=== PATIENT | female | born 1940 | race Caucasian/White ===

== ENCOUNTER → 2024-09-30 | Outpatient (CLI) | payer MEDICARE ==
[2024-09-30 15:16] LABS: Partial Thromboplastin Time 25.2 sec (22.0-30.0); Prothrombin Time 11.2 sec (10.0-12.5)
[2024-09-30 18:11] LABS: HCT 39.7 % (37.2-46.3); HGB 12.9 g/dL (12.0-15.0); MCH 40.6 pg (27.0-32.0); MCHC 32.5 g/dL (32.0-37.0); MCV 124.8 FL (80.0-97.0); Mean Platelet Volume 12.5 FL (9.5-12.2); NRBC Per 100 WBC 0 X 10*3/uL (0.00-0.01); Platelet Count 375 X 10*3/uL (140-440); RBC 3.18 X 10*6/uL (4.10-5.20); RDW 12.6 % (11.5-14.5)
[2024-09-30 18:27] LABS: ALT 9 U/L (8-44); AST 25 U/L (13-35); Albumin 4.4 g/dL (3.8-4.9); Albumin/Globulin Ratio 1.91 Ratio (1.60-3.17); Alkaline Phosphatase 64 U/L (41-126); BUN/Creat Ratio 14.86 Ratio (12.00-20.00); Blood Urea Nitrogen 10.4 mg/dL (9.0-27.0); Calcium 9.2 mg/dL (8.7-10.3); Carbon Dioxide 25.8 mmol/L (21.6-31.8); Chloride 104 mmol/L (96-109); Globulin 2.3 g/dL (1.6-3.3); Glucose 107 mg/dL (70-110); Potassium 4.2 mmol/L (3.5-5.5); Sodium 142 mmol/L (135-145); Total Bilirubin 0.8 mg/dL (0.3-1.2); Total Protein 6.7 g/dL (6.2-8.2)
[2024-09-30 19:47] LABS: Basophils # (A) 0.05 X 10*3/uL (0.00-0.10); Basophils % (A) 0.7 %; Eosinophils # (A) 0.08 X 10*3/uL (0.04-0.35); Eosinophils % (A) 1.1 %; Lymphocytes # (A) 0.86 X 10*3/uL (0.90-5.00); Lymphocytes % (A) 12.1 %; Macrocytosis (M) 3+ (None Seen); Monocytes # (A) 0.65 X 10*3/uL (0.20-1.00); Monocytes % (A) 9.2 %; Neutrophils # (A) 5.42 X 10*3/uL (1.80-7.70); Neutrophils % (A) 76.3 %
== END | disposition home or self-care (01) ==
LOC: LABPAT 14:40
PROVIDERS: ATTEND Orthopaedic Surgery Sports Medicine
DX: Z01.812 Encounter for preprocedural laboratory examination (principal); Z22.322 Carrier or suspected carrier of Methicillin resistant Staphylococcus aureus; M19.011 Primary osteoarthritis, right shoulder
CPT/HCPCS: 80053; 85025; 85610; 85730; 87070

== ENCOUNTER 2024-10-23 06:02 | Inpatient (IN) | payer MEDICARE ==
[~2024-10-23 06:02] MED LIST: GABAPENTIN 300 MG CAP PO PRN; MELOXICAM 7.5 MG TAB PO PRN; TRANEXAMIC 1,000 MG/100ML-NACL 1,000 MG in SALINE 1 100ML.BAG IVPB PRN
[2024-10-23] MEDS: ACETAMINOPHEN TAB 500 MG TAB PO PRN (06:58)
[2024-10-23] MEDS ORDERED: HYDROmorphone 0.5 MG/0.5 ML SYRINGE IVP PRN ×2 (07:00→09:30)
[2024-10-23] MEDS: IV FLUID CONTINUATION 1,000 ML IV ONE (07:01)
[2024-10-23] MEDS: LACTATED RINGERS 1,000 ML IV SCH ×2 (07:01→09:52)
[2024-10-23] MEDS: DEXAMETHASONE SOD PHOSPHATE 4 MG/ML 1 ML VIAL IV ONE (07:03)
[2024-10-23] MEDS: ONDANSETRON 4 MG/2 ML VIAL IVP PRN (07:03)
[2024-10-23] MEDS: MIDAZOLAM 2 MG/2 ML VIAL IV ONE (07:04)
[2024-10-23] MEDS: ceFAZolin 2 GM in DEXTROSE 5% IN WATER 50 ML IVPB PRN (07:40)
[2024-10-23] MEDS: ceFAZolin 1,000 MG in SODIUM CHLORIDE 0.9% 1,000 ML IRRIGATION ONE (08:09)
[2024-10-23] MEDS: VANCOMYCIN 1,000 MG VIAL MISCELLANE ONE (08:14)
--- NOTE | 2024-10-23 08:59 | P.ANPRN ---
Procedure Note - Anesthesia - Nerve Block Performed Right Interscalene Single Time Out Performed: Yes ([id number]) Date of Procedure: 10/23/24 Procedure Start Time: :06 Procedure Stop Time: 07:11 Location of Patient: PreOp Indication: Acute Post-Operative Pain, Requested by Surgeon Specifically requested for management of pain by DrRamiro: Alan Seals Sedation Type: Sedate with meaningful contact maintained Preparation: Sterile Prep Position: Supine Catheter: None Needle Types: Pajunk Needle Gauge: 21 Ultrasound used to visualize needle placement: Yes Ultrasound used to observe medication spread: Yes Injectate: 0.5% Ropivacaine (see comment for volume) ([id number]) Blood Aspirated: No Pain Paresthesia on Injection Noted: No Resistance on Injection: Normal Image Stored and Saved: Yes Events: Uneventful and Well Tolerated
[2024-10-23] MEDS: ONDANSETRON 4 MG/2 ML VIAL IVP ONE (09:52)
--- NOTE | 2024-10-23 10:23 | XR ---
EXAMINATION TYPE: XR shoulder limited RT DATE OF EXAM: 10/23/2024 10:17 AM COMPARISON: None. CLINICAL INDICATION: Female, 84 years old with history of post op, pain TECHNIQUE: XR shoulder limited RT views were obtained FINDINGS: Glenohumeral prosthesis in place. Postoperative surgical alignment is appropriate. Postoperative surg ical soft tissue changes noted. IMPRESSION: Appropriate postoperative appearance. [facility], , 10/23/2024 10:21 AM
[2024-10-23] MEDS: ceFAZolin 2 GM in DEXTROSE 5% IN WATER 50 ML IVPB SCH (15:42)
[2024-10-23] MEDS ORDERED: DICYCLOMINE 10 MG CAP PO PRN (16:02)
[2024-10-23] MEDS ORDERED: DIPHENOX-ATROP 2.5-0.025 MG 1 EACH TAB PO PRN (16:02)
--- NOTE | 2024-10-23 16:08 | P.HPIM ---
History of Present Illness Patient is admitted for left shoulder surgery postoperatively patient is in some pain but denied any other significant complaints of cough shortness of breath fever chills nausea vomiting abdominal pain dysuria. Patient does have history of polycythemia vera I do not have any labs or CBC available at this time patient had history of DVT in the past secondary to polycythemia vera for which patient on Eliquis and her plaster applicator recommended to start this back again tomorrow. Patient underwent surgery today. And her plaster applicator recommended to start her aspirin back in about a week and add hydroxyurea in about a week. REVIEW OF SYSTEMS: All other systems are negative except those mentioned in the HPI PHYSICAL EXAMINATION: GENERAL: The patient is alert and oriented x3, not in any acute distress. Well developed, well nourished. HEENT: Pupils are round and equally reacting to light. EOMI. No scleral icterus. No conjunctival pallor. Normocephalic, atraumatic. No pharyngeal erythema. No thyromegaly. CARDIOVASCULAR: S1 and S2 present. No murmurs, rubs, or gallops. PULMONARY: Chest is clear to auscultation, no wheezing or crackles. ABDOMEN: Soft, nontender, nondistended, normoactive bowel sounds. No palpable organomegaly. MUSCULOSKELETAL: No joint swelling or deformity. EXTREMITIES: No cyanosis, clubbing, or pedal edema. NEUROLOGICAL: Gross neurological examination did not reveal any focal deficits. SKIN: No rashes. Assessment and plan -Left shoulder surgery pain management as per primary service. Patient will be started on Eliquis starting tomorrow morning. - Polycythemia rubra vera history hold of hydroxyurea for now. - History of DVT in the past resume Eliquis starting tomorrow morning-history of paroxysmal atrial fibrillation presently sinus rhythm --Hyperlipidemia Depression For above-mentioned chronic medical problems patient will be resumed on appropriate home medications. 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 Past Psychological History: Depression Smoking Status: Never smoker Past Alcohol Use History: Occasional Additional Past Alcohol Use History / Comment(s): advised no alcohol 24 hrs prior to surg. Past Drug Use History: None Reported - Past Family History Father Family Medical History: Diabetes Mellitus, Myocardial Infarction ([place]) Mother Family Medical History: Cancer Additional Family Medical History / Comment(s): lung Daughter(s) Family Medical History: Pulmonary Embolus Medications and Allergies Home Medications Medication Instructions Recorded Confirmed Type Acetaminophen Tab [Tylenol] 650 mg PO Q6H 10/20/24 10/23/24 History Apixaban [Eliquis] 5 mg PO BID 10/20/24 10/23/24 History Aspirin [[place] Aspirin EC] 81 mg PO DAILY 10/20/24 10/23/24 History Atorvastatin [Lipitor] 40 mg PO HS 10/20/24 10/23/24 History Cholecalciferol [Vitamin D3 (10 10 mcg PO DAILY 10/20/24 10/23/24 History Mcg = 400 Iu)] DULoxetine HCL [Cymbalta] 20 mg PO DAILY 10/20/24 10/23/24 History Dicyclomine [Bentyl] 10 mg PO QID PRN 10/20/24 10/23/24 History Diphenox-Atrop 2.5-0.025 mg 1 - 2 tab PO QID PRN 10/20/24 10/23/24 History [Lomotil] Ergocalciferol [Vitamin D2 (1250 1,250 mcg PO WEEKLY 10/20/24 10/23/24 History Mcg = 46118 Iu)] Ferrous Gluconate 324 mg PO DAILY 10/20/24 10/23/24 History Folic Acid 1 mg PO DAILY 10/20/24 10/23/24 History Gabapentin [Neurontin] 100 mg PO QAM 10/20/24 10/23/24 History Gabapentin [Neurontin] 300 mg PO HS 10/20/24 10/23/24 History Hydroxyurea 500 mg PO BID 10/20/24 10/23/24 History Memantine [Namenda] 10 mg PO BID 10/20/24 10/23/24 History Multivit-Min/Iron/Folic/Lutein 1 each PO DAILY 10/20/24 10/23/24 History [Centrum Silver Women Tablet] Pantoprazole [Protonix] 40 mg PO DAILY 10/20/24 10/23/24 History Docusate [Colace] 100 mg PO BID #60 capsule 10/23/24 Rx Doxycycline Hyclate 100 mg PO BID #10 tab 10/23/24 Rx Ondansetron [Zofran] 4 mg PO Q8HR PRN #21 tab 10/23/24 Rx Allergies Allergy/AdvReac Type Severity Reaction Status Date / Time levofloxacin [From Levaquin] Allergy Rash/Hives Verified 10/23/24 06:19 Physical Exam Vitals: Vital Signs Temp Pulse Pulse Resp BP Pulse Ox 10/23/24 14:21 97.9 F 77 17 100/58 92 L 10/23/24 12:15 71 123/78 93 L 10/23/24 12:00 63 124/66 93 L 10/23/24 11:45 65 134/73 91 L 10/23/24 11:30 79 127/78 90 L 10/23/24 11:15 64 127/79 93 L 10/23/24 11:00 59 L 110/68 96 10/23/24 10:45 62 122/75 92 L 10/23/24 10:30 97.6 F 69 18 111/65 94 L 10/23/24 10:08 61 16 123/70 96 10/23/24 09:53 67 16 133/68 97 10/23/24 09:38 76 16 142/64 100 10/23/24 09:23 96.7 F L 80 14 141/71 100 10/23/24 07:16 68 14 151/72 96 10/23/24 06:26 97.1 F L 71 16 138/72 92 L Intake and Output 10/23/24 10/23/24 10/23/24 06:59 14:59 22:59 Intake Total 1485 Output Total 100 Balance 1385 Intake: IV 501 Oral 984 Output: Estimated Blood Loss 100 Other: # Voids 1 1 Weight 86.1 kg 86.1 kg Thrombosis Risk Factor Assmnt - Choose All That Apply Any of the Below Risk Factors Present?: Yes Each Factor Represents 1 point: Hx of IBD, Obesity (BMI >25) Each Risk Factor Represents 2 Points: Major surgery, Malignancy Each Risk Factor Represents 3 Points: Age 75 years or older, Family history of DVT/PE, History of DVT/PE Other congenital or acquired thrombophilia - If yes, enter type in comment: Yes (faith-2+ polycythemia vera) Thrombosis Risk Factor Assessment Total Risk Factor Score: 15 Thrombosis Risk Factor Assessment Level: High Risk
[2024-10-23] MEDS: PANTOPRAZOLE 40 MG TABLET PO SCH (16:20)
[2024-10-23] MEDS: DULoxetine HCL 20 MG CAPSULE.DR PO SCH (17:07)
[2024-10-23] MEDS: HYDROcodone/APAP 7.5-325MG 1 EACH TAB PO PRN (22:16)
[2024-10-23] MEDS: ATORVASTATIN 40 MG TAB PO SCH (22:16)
[2024-10-23] MEDS: MEMANTINE 10 MG TAB PO SCH (22:16)
[2024-10-23] MEDS: GABAPENTIN 300 MG CAP PO SCH (22:16)
[2024-10-23] MEDS: HYDROmorphone 0.5 MG/0.5 ML SYRINGE IVP PRN (23:52)
[2024-10-24] MEDS: HYDROcodone/APAP 7.5-325MG 1 EACH TAB PO PRN (01:58)
[2024-10-24] MEDS: HYDROmorphone 0.5 MG/0.5 ML SYRINGE IVP PRN (02:58)
[2024-10-24 05:07] LABS: HCT 37.3 % (37.2-46.3); HGB 11.9 g/dL (12.0-15.0); MCH 40.6 pg (27.0-32.0); MCHC 31.9 g/dL (32.0-37.0); MCV 127.3 fL (80.0-97.0); Mean Platelet Volume 12.5 fL (9.5-12.2); Platelet Count 299 10*3/uL (140-440); RBC 2.93 10*6/uL (4.10-5.20); RDW 11.4 % (11.5-14.5); WBC 24.72 10*3/uL (4.50-10.00)
[2024-10-24 06:43] LABS: Lymphocytes # (M) 0.74 k/uL (1.0-4.8); Metamyelocytes # (M) 0.74 k/uL (0); Metamyelocytes % 3 %; Monocytes # (M) 0.49 k/uL (0-1.0); Myelocytes # (M) 0.25 k/uL (0); Myelocytes % 1 %; Neutrophils % (M) 91 %; Nucleated Red Blood Cells 0 /100 WBC (0-0); Total Cells Counted 96
[2024-10-24] MEDS: APIXABAN 5 MG TAB PO SCH (07:55)
[2024-10-24] MEDS: GABAPENTIN 100 MG CAP PO SCH (07:56)
[2024-10-24] MEDS ORDERED: oxyCODONE-APAP 7.5-325MG 1 EACH TAB PO PRN (09:22)
--- NOTE | 2024-10-24 10:51 | OP ---
OPERATIVE REPORT DATE OF SERVICE : 10/23/2024 PREOPERATIVE DIAGNOSIS: Right shoulder advanced rotator cuff arthropathy. POSTOPERATIVE DIAGNOSIS: Right shoulder advanced rotator cuff arthropathy. OPERATION: Right reverse total shoulder arthroplasty. ANESTHESIA: General endotracheal. ESTIMATED BLOOD LOSS: 100 mL. DRAINS: None. COMPLICATIONS: None apparent. DISPOSITION: Postanesthesia care unit. INDICATIONS: Jessie is a very pleasant 84-year-old female with longstanding right shoulder pain. Workup including x-rays revealed advanced rotator cuff arthropathy of the right shoulder. At this point, it was felt that she has failed conservative management. She would like to proceed with operative intervention. The risks of procedure were discussed with her in detail. These risks include, but are not limited to risk of infection, nerve damage, bleeding, pain, instability in the shoulder, loosening of the implants, and deep infection. There is also risk of deep vein thrombosis, which could lead to fatal pulmonary embolism. The patient understood these risks. All of her questions with regard to the risks of procedure were answered to her satisfaction. Appropriate informed consent was obtained. DESCRIPTION OF PROCEDURE: The patient was identified in the preoperative holding area. Surgical site was marked by both the patient and myself. She was given 2 g of Ancef IV for prophylactic purposes. She was then transferred to the operative suite. She was placed supine on the operating table. A general anesthetic was then administered and dosed per the Anesthesia Department without apparent complication. Examination under anesthesia was then performed of the right shoulder. She had elevation to 120 degrees. External rotation to side was to 30 degrees. The patient was then placed into the beach chair position and well-padded in preparation for surgery. Great care was taken to ensure that her neck was in neutral alignment well-padded and maintained that way throughout the operative procedure. Great care was also taken to ensure that her legs were appropriately padded as well. The patient's right upper extremity was then prepped and draped in usual sterile fashion. Standard surgical pause undertaken to ensure that we were operating the correct site and that appropriate preoperative antibiotics were given. All staff in room were in agreement, and we proceeded. The acromion AC joint clavicle and coracoid were marked with a surgical pen. A planned incision starting at the level of the clavicle and extending distally over the deltopectoral interval approximately 1 cm lateral to the coracoid was marked with a surgical pen. The incision was then made with a 10-blade scalpel. Dissection was carried down sharply to the deltoid fascia. The deltopectoral interval was identified at the level of clavicle. A small band retractor was then placed onto the proximal deltoid. I then released the deltoid fascia on the lateral aspect of the cephalic vein. The vein was protected and left in its bed medially. I then identified the clavipectoral fascia. This was incised proximally to the level of the coracoacromial ligament. The coracoacromial ligament was left intact. We then used my finger to spread the interval between the conjoint tendon and the subscapularis. I felt for the axillary nerve, which was readily palpable. I then cleared the subacromial and subdeltoid spaces of bursal and scar tissue. She had significant bursal and scar tissue in the subdeltoid space. The greater tuberosity was nearly completely devoid of any rotator cuff attachment. I then utilized a Brown retractor to hold the deltoid and expose the humeral head. I then proceeded with release of the subscapularis in the anterior-inferior shoulder capsule. The rotator cuff was inspected and was found to be nearly completely absent at the greater tuberosity. The biceps tendon was also identified. I then released the rotator interval to the base of the coracoid and then out laterally. The subscapularis and capsule were then released intertendinously. The subscapularis and capsular release extended distally in a lazy-S fashion, approximately 1 cm medial to the biceps tendon. I also at this point in time tenodesed the biceps to the soft tissue surrounding the bicipital groove and released the biceps tendon. I then continued to release the capsule along the inferior neck in a vertical fashion to approximately the 6 o'clock position. Great care was taken to ensure the capsule was always visualized as it was released as to avoid injuring the axillary nerve. I then brought a Fritz strain technician with the arm externally rotated and abducted. I continued to release the capsule inferomedially to the 4 o'clock position. The inferior osteophytes were now removed as well. This was done with a rongeur. I then proceeded with preparation of the humerus. I removed all the goat's giraldo osteophytes. I then removed the subchondral plate from the superior aspect of the humeral head utilizing a rongeur. I then used a starting reamer to gain access to the humeral canal. This was approximately 1 cm medial to the rotator cuff insertion and 1 cm posterior to the bicipital groove. I then prepared the humeral canal with hand reaming. I started with a 6 mm reamer and incrementally increased until firm resistance was encountered. This was at 13 mm. The reamer handle was then left in place. I then utilized a humeral resection guide set at 30 degrees of retrotorsion. The cutting block was then set at the previous insertion of the rotator cuff. I then proceeded to osteotomize the humeral head with an oscillating saw. I removed the resection guide and then completed the osteotomy. I then proceeded with trial stem placement. I broached up to a size 13 incrementally. The 13 mm trial stem was then left in place. I brought in the Fritz stand. The bone hook was then used to pull the humerus out laterally. I inspected the joint for any loose bodies. The Bhattman retractor was then placed on the posterior glenoid rim. The arm was placed approximately 80 degrees of abduction and in slight flexion on the Fritz stand. I then proceeded to remove the hypertrophic labrum to definitively identify the actual glenoid. I then used the mini base plate guide. This was placed slightly inferior of center. The starting pin was then placed. This was placed in approximately 10 degrees of inferior tilt. I then used a mini base plate reamer. As minimal reaming was done as possible as to preserve as much subchondral bone as possible. I then used the trial small augment. This was placed posterior superiorly. This fit very nicely. I had the account manager sales representative open a [employer] mini base plate with a small augment. The small augment was then oriented posterior superiorly and then the real base plate was impacted into the glenoid. I then proceeded with placement of the central screw. I measured for the central screw. A 25 mm central screw was placed. The bite was not as firm as usual, but it still had a fairly good bite and it was checked to be fully seated. I then placed peripheral locking screws. The inferior screw was a 20 mm screw, the anterior, superior, and posterior screws were all 15 mm locking screws. I had the account manager sales representative open the 36 mm glenosphere. It was offset slightly inferiorly. The Berrios taper was dried and the real glenosphere was then impacted into the real base plate. We did check the clonus preceding to ensure that it was fully seated and it was. I then proceeded with trial. The shoulder was then carefully re-dislocated. We placed a standard tray, standard poly trial. This was a mildly difficult reduction. It was very stable throughout a full range of motion. There was no impingement noted. There was not any undue tension on the conjoint tendon. The shoulder was then carefully re- dislocated. The trial humeral components were removed. The wound was thoroughly irrigated with sterile saline solution with antibiotic added via pulse lavage. We also utilized the IrriSept antiseptic solution at this time. I then account manager sales representative open a 13 mm [employer]omet mini stem, a standard tray and a standard poly for 36 mm glenosphere. The stem was then impacted into the proximal humerus in approximately 30 degrees of retrotorsion. It was very secure fit. The Berrios taper was dried and then the standard tray and standard poly was then impacted appropriately onto the stem. It was a very firm connection. The shoulder was again reduced. Again, it was a mildly difficult reduction. It was taken through a full range of motion and very stable. Again, there was no undue tension on the conjoint tendon. At this point, I did feel for the axillary nerve, which was readily palpable and seemingly uninjured. We did use remaining IrriSept solution at this point in time. Once we were through with that, we placed approximately 500 mg of vancomycin powder deep. The deltopectoral interval was then reapproximated with 0 Vicryl interrupted suture. Subcutaneous tissue was thoroughly irrigated and what was left of the IrriSept solution was utilized. The remaining 500 mg of vancomycin powder was then placed subcutaneously. Subcutaneous tissue was closed with 2-0 Vicryl interrupted suture, and the skin was closed with a running 3-0 Quill suture. Dermabond was applied to the incision. Sterile dressings were applied, and the patient's right upper extremity was placed into a standard sling. All sponge and needle counts were deemed correct prior to closure. The patient tolerated the procedure without apparent complication. She was transferred to the recovery room in stable condition. MMODL / IJN: [id number] /
--- NOTE | 2024-10-24 11:48 | P.PN ---
Subjective Progress Note Date: 10/24/24 Principal diagnosis: S/P right reverse TSA Patient is seen at bedside this morning. She is postop day #1 from reverse right total shoulder arthroplasty. She has pain at the surgical site as expected but denies any new complaints. She denies numbness, tingling or calf pain. Review of systems is negative for fever, chills, chest pain, shortness of breath or other Objective - Vital Signs Vital signs: Vital Signs Temp 97.8 F 10/24/24 07:20 Pulse 68 10/24/24 07:20 Resp 20 10/24/24 07:20 BP 110/67 10/24/24 07:20 Pulse Ox 92 L 10/24/24 07:20 FiO2 Intake & Output 10/23/24 10/24/24 10/24/24 18:59 06:59 18:59 Intake Total 2385 100 Output Total 100 Balance 2285 100 Weight 86.1 kg Intake: IV 501 Intake, IV Titration 100 Amount Lactated Ringers 1,000 ml 50 @ 100 mls/hr IV .Q10H KYREE Rx#:[id number] ceFAZolin 2 gm In 50 Dextrose 5% in Water 50 ml @ 100 mls/hr IVPB Q8HR KYREE Rx#:[id number] Oral 1884 Output: Estimated Blood Loss 100 Other: Voiding Method Toilet # Voids 3 2 1 - Exam Inspection reveals a benign surgical wound. There is no active bleeding or drainage. Neurovascular status is intact throughout the upper extremity with motor and sensation fully intact. Calves are soft and nontender. 2+ radial pulse and less than 2 second cap refill is present. - Constitutional General appearance: Present: no acute distress - Labs CBC & Chem 7: 10/24/24 04:11 Labs: Abnormal Lab Results - Last 24 Hours (Table) 10/24/24 Range/Units 04:11 WBC 24.72 H (4.50-10.00) 10*3/uL RBC 2.93 L (4.10-5.20) 10*6/uL Hgb 11.9 L (12.0-15.0) g/dL MCV 127.3 H (80.0-97.0) fL MCH 40.6 H (27.0-32.0) pg MCHC 31.9 L (32.0-37.0) g/dL RDW 11.4 L (11.5-14.5) % MPV 12.5 H (9.5-12.2) fL Immature Gran # 0.63 H (0.00-0.04) 10*3/uL Neutrophils # (Manual) 22.50 H (1.3-7.7) k/uL Lymphocytes # (Manual) 0.74 L (1.0-4.8) k/uL Metamyelocytes # (Man) 0.74 H (0) k/uL Myelocytes # (Manual) 0.25 H (0) k/uL Assessment and Plan (1) Status post total replacement of right shoulder Narrative/Plan: She will continue with routine postop orthopedic protocol including pain management, wound care, DVT prophylaxis and medical management. Expect that she will transfer to home tomorrow Current Visit: Yes Status: Acute Priority: Medium Code(s): Z96.611 - PRESENCE OF RIGHT ARTIFICIAL SHOULDER JOINT SNOMED Code(s): 053857002 Time with Patient: Less than 30
[2024-10-24] MEDS: oxyCODONE-APAP 7.5-325MG 1 EACH TAB PO PRN (13:07)
[2024-10-24] MEDS: diphenhydrAMINE 25 MG CAP PO PRN (21:58)
--- NOTE | 2024-10-25 06:24 | P.PN ---
Subjective Progress Note Date: 10/24/24 Patient is admitted for right shoulder surgery postoperatively patient is in some pain but denied any other significant complaints of cough shortness of breath fever chills nausea vomiting abdominal pain dysuria. Patient does have history of polycythemia vera I do not have any labs or CBC available at this time patient had history of DVT in the past secondary to polycythemia vera for which patient on Eliquis and her geneticist recommended to start this back again tomorrow. Patient underwent surgery today. And her geneticist recommended to start her aspirin back in about a week and add hydroxyurea in about a week. 10/24/2024 Patient is seen in follow-up status post right total arthroplasty with orthopedics. Patient with significant weakness is planning on going to rehab for continued strength and mobility. Patient is afebrile sitting up in the chair with no reports of chest pain or shortness of breath. Patient does have sling although currently not using it as she is sitting up in the chair eating. Instructed patient to continue using sling is much as possible. Patient uses a walker normally and will be having difficulty managing ADLs and would recommend ECF for continued PT/OT therapy. Patient does live alone. Patient reports she is tolerating diet with no reported nausea or vomiting. Encouraged incentive spirometer use and increase activity as tolerated Review of systems: Constitutional: No reports of fatigue, fever, or chills Cardiovascular: No reports of chest pain or palpitations Respiratory: No reports of shortness of breath or cough GI: No reports of nausea, vomiting, or diarrhea, reports passing gas and had a bowel movement : No reports of dysuria or retention Neurovascular: reports of generalized weakness All medications have been reviewed PHYSICAL EXAMINATION: GENERAL: The patient is alert and oriented x3, not in any acute distress. Well developed, elderly appearing HEENT: Pupils are round and equally reacting to light. EOMI. No scleral icterus. No conjunctival pallor. Normocephalic, atraumatic. No pharyngeal erythema. No thyromegaly. CARDIOVASCULAR: S1 and S2 present. No murmurs, rubs, or gallops. PULMONARY: Chest is clear to auscultation, no wheezing or crackles. ABDOMEN: Soft, nontender, nondistended, normoactive bowel sounds. No palpable organomegaly. MUSCULOSKELETAL: No joint swelling or deformity. EXTREMITIES: No cyanosis, clubbing, or pedal edema. Right shoulder sling noted although patient is not using currently as she is eating NEUROLOGICAL: Gross neurological examination did not reveal any focal deficits. Diffusely weak SKIN: No rashes. Assessment: -Status post right shoulder total arthroplasty - Polycythemia rubra vera history hold off hydroxyurea for now. Okay to resume in approximately 1 week - History of DVT in the past, resume Eliquis starting tomorrow morning -history of paroxysmal atrial fibrillation presently sinus rhythm -Hyperlipidemia -History of Depression DVT prophylaxis: As per primary service, Eliquis being resumed GI prophylaxis Full code Plan: Patient is admitted under orthopedic services status post right total shoulder arthroplasty and has sling. Patient uses a walker and will be hard to perform ADLs and is planning on going to ECF Case management following working on discharge planning Encourage incentive spirometer use at least 10 times every hour while awake Home medications reviewed and resumed as appropriate Patient's Hydrea is being held and okay to resume in about 1 week Resuming Eliquis Thank you kindly for this consultation. We will continue to follow with orthopedics during hospitalization The impression and plan of care has been dictated by Temitope Horner, Nurse Practitioner as directed. Dr. Karely MD I have performed a history and examination and MDM of this patient, discussed the same with the dictator, and agree with the dictator's assessment and plan as written ,documented as a scribe. Based on total visit time, I have performed more than 50% of the visit. Objective - Vital Signs Vital signs: Vital Signs Temp 97.8 F 10/24/24 07:20 Pulse 68 10/24/24 07:20 Resp 20 10/24/24 07:20 BP 110/67 10/24/24 07:20 Pulse Ox 92 L 10/24/24 07:20 FiO2 Intake & Output 10/23/24 10/24/24 10/24/24 18:59 06:59 18:59 Intake Total 2385 100 Output Total 100 Balance 2285 100 Weight 86.1 kg Intake: IV 501 Intake, IV Titration 100 Amount Lactated Ringers 1,000 ml 50 @ 100 mls/hr IV .Q10H KYREE Rx#:[id number] ceFAZolin 2 gm In 50 Dextrose 5% in Water 50 ml @ 100 mls/hr IVPB Q8HR KYREE Rx#:[id number] Oral 1884 Output: Estimated Blood Loss 100 Other: Voiding Method Toilet # Voids 3 2 1 - Labs CBC & Chem 7: 10/24/24 04:11 Labs: Abnormal Lab Results - Last 24 Hours (Table) 10/24/24 Range/Units 04:11 WBC 24.72 H (4.50-10.00) 10*3/uL RBC 2.93 L (4.10-5.20) 10*6/uL Hgb 11.9 L (12.0-15.0) g/dL MCV 127.3 H (80.0-97.0) fL MCH 40.6 H (27.0-32.0) pg MCHC 31.9 L (32.0-37.0) g/dL RDW 11.4 L (11.5-14.5) % MPV 12.5 H (9.5-12.2) fL Immature Gran # 0.63 H (0.00-0.04) 10*3/uL Neutrophils # (Manual) 22.50 H (1.3-7.7) k/uL Lymphocytes # (Manual) 0.74 L (1.0-4.8) k/uL Metamyelocytes # (Man) 0.74 H (0) k/uL Myelocytes # (Manual) 0.25 H (0) k/uL
[2024-10-25 10:16] LABS: HCT 39.6 % (37.2-46.3); HGB 12.3 g/dL (12.0-15.0); MCH 38.4 pg (27.0-32.0); MCHC 31.1 g/dL (32.0-37.0); MCV 123.8 FL (80.0-97.0); Mean Platelet Volume 12.8 FL (9.5-12.2); NRBC Per 100 WBC 0 X 10*3/uL (0.00-0.01); Platelet Count 389 X 10*3/uL (140-440); RDW 11.9 % (11.5-14.5); WBC 24.12 X 10*3/uL (4.50-10.00)
[2024-10-25 10:18] LABS: BUN/Creat Ratio 13.86 Ratio (12.00-20.00); Blood Urea Nitrogen 9.7 mg/dL (9.0-27.0); Calcium 8.8 mg/dL (8.7-10.3); Carbon Dioxide 25.6 mmol/L (21.6-31.8); Chloride 98 mmol/L (96-109); Glucose 119 mg/dL (70-110); Potassium 5.3 mmol/L (3.5-5.5); Sodium 136 mmol/L (135-145)
--- NOTE | 2024-10-25 10:38 | P.DS ---
Providers Date of admission: 10/23/2024 Expected date of discharge: 10/25/24 Attending physician: Alan Seals Consults: 10/23/24 09:30 Consult Physician Routine Consulting Provider: Sybil Mcgrath Reason/Comments: post op medical management Do you want consulting provider notified?: Yes Primary care physician: Stated None - Discharge Diagnosis(es) (1) Rotator cuff arthropathy of right shoulder Current Visit: Yes Status: Acute (2) Right shoulder pain Current Visit: Yes Status: Acute (3) Atrial fibrillation Current Visit: Yes Status: Acute (4) History of DVT (deep vein thrombosis) Current Visit: Yes Status: Acute (5) Hyperlipidemia Current Visit: Yes Status: Acute (6) Polycythemia Current Visit: Yes Status: Acute (7) Status post total replacement of right shoulder Current Visit: Yes Status: Acute Priority: Medium Hospital Course: This is a pleasant 84-year-old female who presented with right shoulder advanced rotator cuff arthropathy who failed outpatient conservative therapy. He was admitted for a right reverse total shoulder arthroplasty. She had some difficulty with pain control initially. Her pain has been better controlled since being converted to Percocet. She is not currently complaining of any significant pain at her right shoulder. Dressing is clean, dry, and intact. She is utilizing a sling. The patient tolerated the procedure well and did well postoperatively. Condition on day of discharge stable from an orthopedic standpoint. Patient will be discharged home. Patient states she is itching today over her entire body. I do not see any rash or hives. She states her itching is generalized. She has been taking narcotic medications in the codeine family since her admission to the hospital without any difficulty. She states itching started this morning. We did discuss she must be seen in exam by medicine and cleared prior to her discharge home. Patient is planned to be discharged home with her daughter who is a nurse here at [facility]. Patient currently denies any nausea, vomiting, fever, or chills. Patient is eating and voiding freely without difficulty. Patient should keep dressing over the right shoulder clean, dry, and intact. Dressing may be removed in 3 days and patient may shower without a dressing at that time if there is no active bleeding from the surgical site. She should continue to maintain her sling for the right upper extremity. She is nonweightbearing with the right upper extremity. Medications of oxycodone 5 mg / 325 mg, Colace, doxycycline, and Zofran were sent to the patient's pharmacy. Patient's other medical diagnoses include hyperlipidemia, polycythemia, history of DVT, and history of paroxysmal atrial fibrillation. Physical Exam on day of discharge: Patient is awake, alert, and oriented 3 Vital signs stable Good chest excursion with deep inspiration and expiration Abdomen soft nontender No signs or symptoms of DVT; no calf pain Right upper extremity sling is intact Patient is able to perform active range of motion of her right wrist and fingers of the right hand without significant difficulty No significant pain with palpation around the surgical site of the right shoulder Incision is clean, dry, and intact; no erythema, purulence, or signs of infection Surgical dressing over the right shoulder is intact Procedures: Reverse right total shoulder arthroplasty Patient Condition at Discharge: Stable Plan - Discharge Summary Discharge Rx Participant: Yes New Discharge Prescriptions: New Doxycycline Hyclate 100 mg PO BID #10 tab Ondansetron [Zofran] 4 mg PO Q8HR PRN #21 tab PRN Reason: Nausea Doxycycline Hyclate 100 mg PO BID #10 tab oxyCODONE HCL/ACETAMINOPHEN [Percocet 5-325 mg Tablet] 1 each PO Q6HR PRN #30 tab PRN Reason: Pain Docusate [Colace] 100 mg PO BID #60 capsule Docusate [Colace] 100 mg PO BID #60 capsule Ondansetron [Zofran] 4 mg PO Q8HR PRN #21 tab PRN Reason: Nausea No Action Dicyclomine [Bentyl] 10 mg PO QID PRN PRN Reason: stomach pain Gabapentin [Neurontin] 100 mg PO QAM DULoxetine HCL [Cymbalta] 20 mg PO DAILY Diphenox-Atrop 2.5-0.025 mg [Lomotil] 1 - 2 tab PO QID PRN PRN Reason: Diarrhea Acetaminophen Tab [Tylenol] 650 mg PO Q6H Multivit-Min/Iron/Folic/Lutein [Centrum Silver Women Tablet] 1 each PO DAILY Memantine [Namenda] 10 mg PO BID Hydroxyurea 500 mg PO BID Gabapentin [Neurontin] 300 mg PO HS Apixaban [Eliquis] 5 mg PO BID Pantoprazole [Protonix] 40 mg PO DAILY Folic Acid 1 mg PO DAILY Ferrous Gluconate 324 mg PO DAILY Ergocalciferol [Vitamin D2 (1250 Mcg = 55359 Iu)] 1,250 mcg PO WEEKLY Atorvastatin [Lipitor] 40 mg PO HS Aspirin [[place] Aspirin EC] 81 mg PO DAILY Cholecalciferol [Vitamin D3 (10 Mcg = 400 Iu)] 10 mcg PO DAILY Discharge Medication List Acetaminophen Tab [Tylenol] 650 mg PO Q6H 10/20/24 [History] Apixaban [Eliquis] 5 mg PO BID 10/20/24 [History] Aspirin [[place] Aspirin EC] 81 mg PO DAILY 10/20/24 [History] Atorvastatin [Lipitor] 40 mg PO HS 10/20/24 [History] Cholecalciferol [Vitamin D3 (10 Mcg = 400 Iu)] 10 mcg PO DAILY 10/20/24 [History] DULoxetine HCL [Cymbalta] 20 mg PO DAILY 10/20/24 [History] Dicyclomine [Bentyl] 10 mg PO QID PRN 10/20/24 [History] Diphenox-Atrop 2.5-0.025 mg [Lomotil] 1 - 2 tab PO QID PRN 10/20/24 [History] Ergocalciferol [Vitamin D2 (1250 Mcg = 83427 Iu)] 1,250 mcg PO WEEKLY 10/20/24 [History] Ferrous Gluconate 324 mg PO DAILY 10/20/24 [History] Folic Acid 1 mg PO DAILY 10/20/24 [History] Gabapentin [Neurontin] 100 mg PO QAM 10/20/24 [History] Gabapentin [Neurontin] 300 mg PO HS 10/20/24 [History] Hydroxyurea 500 mg PO BID 10/20/24 [History] Memantine [Namenda] 10 mg PO BID 10/20/24 [History] Multivit-Min/Iron/Folic/Lutein [Centrum Silver Women Tablet] 1 each PO DAILY 10/20/24 [History] Pantoprazole [Protonix] 40 mg PO DAILY 10/20/24 [History] Docusate [Colace] 100 mg PO BID #60 capsule 10/23/24 [Rx] Doxycycline Hyclate 100 mg PO BID #10 tab 10/23/24 [Rx] Ondansetron [Zofran] 4 mg PO Q8HR PRN #21 tab 10/23/24 [Rx] Docusate [Colace] 100 mg PO BID #60 capsule 10/24/24 [Rx] Doxycycline Hyclate 100 mg PO BID #10 tab 10/24/24 [Rx] Ondansetron [Zofran] 4 mg PO Q8HR PRN #21 tab 10/24/24 [Rx] oxyCODONE HCL/ACETAMINOPHEN [Percocet 5-325 mg Tablet] 1 each PO Q6HR PRN #30 tab 10/24/24 [Rx] Follow up Appointment(s)/Referral(s): Alan Seals MD [STAFF PHYSICIAN] - 10 Days Activity/Diet/Wound Care/Special Instructions: Non Weight Bearing Maintain sling May shower after 3 days if no bleeding Keep wound clean and dry Take meds as directed F/U with Dr. Seals in office Discharge Disposition: HOME SELF-CARE
[2024-10-25 11:02] LABS: Basophils % (A) 0.4 %; Eosinophils # (A) 0.09 X 10*3/uL (0.04-0.35); Eosinophils % (A) 0.4 %; Lymphocytes # (A) 1.53 X 10*3/uL (0.90-5.00); Lymphocytes % (A) 6.3 %; Macrocytosis (M) 3+ (None Seen); Monocytes # (A) 3.58 X 10*3/uL (0.20-1.00); Monocytes % (A) 14.8 %; Neutrophils # (A) 18.49 X 10*3/uL (1.80-7.70); Neutrophils % (A) 76.7 %
--- NOTE | 2024-10-25 13:57 | XR ---
EXAMINATION TYPE: XR chest 2V DATE OF EXAM: 10/25/2024 1:42 PM COMPARISON: Right shoulder radiograph 10/23/2024 TECHNIQUE: XR chest 2V Frontal and lateral views of the chest. CLINICAL INDICATION:Female, 84 years old with history of Hypoxia; FINDINGS: Lungs/Pleura: There is no evidence of pleural effusion, focal consolidation, or pneumothorax. Elevat ion of the right hemidiaphragm. Right basilar linear atelectasis. Pulmonary vascularity: Unremarkable. Heart/mediastinum: Cardiomediastinal silhouette is unremarkable. Atherosclerotic calcifications are seen in the aorta. Musculoskeletal: No acute osseous pathology. Bilateral shoulder arthroplasty changes. IMPRESSION: No acute cardiopulmonary disease/process. [facility], , 10/25/2024 1:54 PM
[2024-10-25 16:01] LABS: Appearance,Urine Clear (Clear); Bilirubin,Urine Negative (Negative); Blood,Urine Negative (Negative); Color,Urine Yellow; Glucose,Urine (UA) Negative (Negative); Ketones,Urine Negative (Negative); Leukocyte Esterase,Urine Negative (Negative); Nitrite,Urine Negative (Negative); PH, Urine 5.5 (5.0-8.0); Protein,Urine Trace (Negative); Specific Gravity,Urine 1.019 (1.001-1.035); Urobilinogen,Urine <2.0 mg/dL (<2.0)
--- NOTE | 2024-10-25 16:08 | P.PN ---
Subjective Progress Note Date: 10/25/24 Patient is admitted for right shoulder surgery postoperatively patient is in some pain but denied any other significant complaints of cough shortness of breath fever chills nausea vomiting abdominal pain dysuria. Patient does have history of polycythemia vera I do not have any labs or CBC available at this time patient had history of DVT in the past secondary to polycythemia vera for which patient on Eliquis and her parts salesman recommended to start this back again tomorrow. Patient underwent surgery today. And her parts salesman recommended to start her aspirin back in about a week and add hydroxyurea in about a week. 10/24/2024 Patient is seen in follow-up status post right total arthroplasty with orthopedics. Patient with significant weakness is planning on going to rehab for continued strength and mobility. Patient is afebrile sitting up in the chair with no reports of chest pain or shortness of breath. Patient does have sling although currently not using it as she is sitting up in the chair eating. Instructed patient to continue using sling is much as possible. Patient uses a walker normally and will be having difficulty managing ADLs and would recommend [facility] for continued PT/OT therapy. Patient does live alone. Patient reports she is tolerating diet with no reported nausea or vomiting. Encouraged incentive spirometer use and increase activity as tolerated 10/25/2024 Patient is evaluated today in follow up. Resting in bed comfortably and reports having minimal to no pain currently. Sling in place to the right shoulder. Patient was evaluated by PT and recommending home with homecare services. WBC 24.12 today. Recommending to resume the hydrea in one week. Resumed on eliquis. Patient continues to be hypoxic requiring oxygen via nasal cannula at 2 L. She is found to be 82% while on room air and dropping into the 70s at times. A chest x-ray was completed which was negative for any acute findings. Viral scan pending. D-dimer was elevated at 0.71. Review of systems: Constitutional: No reports of fatigue, fever, or chills Cardiovascular: No reports of chest pain or palpitations Respiratory: No reports of shortness of breath or cough GI: No reports of nausea, vomiting, or diarrhea, reports passing gas and had a bowel movement : No reports of dysuria or retention Neurovascular: reports of generalized weakness All medications have been reviewed PHYSICAL EXAMINATION: GENERAL: The patient is alert and oriented x3, not in any acute distress. Well developed, elderly appearing HEENT: Pupils are round and equally reacting to light. EOMI. No scleral icterus. No conjunctival pallor. Normocephalic, atraumatic. No pharyngeal erythema. No thyromegaly. CARDIOVASCULAR: S1 and S2 present. No murmurs, rubs, or gallops. PULMONARY: Chest is clear to auscultation, no wheezing or crackles. ABDOMEN: Soft, nontender, nondistended, normoactive bowel sounds. No palpable organomegaly. MUSCULOSKELETAL: No joint swelling or deformity. EXTREMITIES: No cyanosis, clubbing, or pedal edema. Right shoulder sling noted although patient is not using currently as she is eating NEUROLOGICAL: Gross neurological examination did not reveal any focal deficits. Diffusely weak SKIN: No rashes. Assessment: -Acute hypoxemic respiratory failure down to 70% on room air -Status post right shoulder total arthroplasty -Polycythemia rubra vera history hold off hydroxyurea for now. Okay to resume in approximately 1 week -History of DVT in the past, resume Eliquis -history of paroxysmal atrial fibrillation presently sinus rhythm -Hyperlipidemia -History of Depression DVT prophylaxis: As per primary service, Eliquis being resumed GI prophylaxis Full code Plan: Patient is admitted under orthopedic services status post right total shoulder arthroplasty and has sling. Patient uses a walker and will be hard to perform ADLs and is planning on going to ECF; although had worked with PT and the plan is now for home with home health care services. Elevated D-dimer check CT angio Discharge held for investigation of the hypoxia Case management following working on discharge planning Encourage incentive spirometer use at least 10 times every hour while awake Home medications reviewed and resumed as appropriate Patient's Hydrea is being held and okay to resume in about 1 week Resuming Eliquis Thank you kindly for this consultation. We will continue to follow with orthopedics during hospitalization The impression and plan of care has been dictated by Temitope Horner, Nurse Practitioner as directed. Dr. Karely MD I have performed a history and examination and MDM of this patient, discussed the same with the dictator, and agree with the dictator's assessment and plan as written ,documented as a scribe. Based on total visit time, I have performed more than 50% of the visit. Objective - Vital Signs Vital signs: Vital Signs Temp 98.0 F 10/25/24 07:12 Pulse 97 10/25/24 07:12 Resp 18 10/25/24 07:12 BP 115/63 10/25/24 07:12 Pulse Ox 90 L 10/25/24 07:12 FiO2 Intake & Output 10/24/24 10/25/24 10/25/24 18:59 06:59 18:59 Other: Voiding Method Toilet # Voids 1 1 - Labs CBC & Chem 7: 10/25/24 05:51 10/25/24 05:51 Labs: Abnormal Lab Results - Last 24 Hours (Table) 10/25/24 10/25/24 Range/Units 05:51 05:51 WBC 24.12 H (4.50-10.00) X 10*3/uL RBC 3.20 L (4.10-5.20) X 10*6/uL MCV 123.8 H (80.0-97.0) FL MCH 38.4 H (27.0-32.0) pg MCHC 31.1 L (32.0-37.0) g/dL MPV 12.8 H (9.5-12.2) FL Immature Gran # 0.33 H (0.00-0.04) X 10*3/uL Neutrophils # 18.49 H (1.80-7.70) X 10*3/uL Monocytes # 3.58 H (0.20-1.00) X 10*3/uL Macrocytosis (manual) 3+ A (None Seen) Anion Gap 12.40 H (4.00-12.00) mmol/L Glucose 119 H (70-110) mg/dL Assessment and Plan Time with Patient: Less than 30
[2024-10-25] MEDS: DOXYCYCLINE 100 MG TABLET PO SCH (16:37)
[2024-10-25 16:53] LABS: Influenza A Not Detected (Not Detectd); Influenza B Not Detected (Not Detectd); RSV Not Detected (Not Detectd)
--- NOTE | 2024-10-25 17:47 | CT ---
EXAMINATION TYPE: CT chest angio for PE DATE OF EXAM: 10/25/2024 5:41 PM COMPARISON: None. CLINICAL INDICATION: Female, 84 years old with history of Rule out PE, Elevated d-dimer., TECHNIQUE: Axial CT was performed with sagittal and coronal reformats. 3D reconstruction and/or MIP imaging was also performed on a separate workstation. IV CONTRAST: with IV Contrast, patient injected with 100 ml mL of Isovue 370. (None if empty) CT DLP: 530.2 mGycm, Automated exposure control for dose reduction was used. FINDINGS: PULMONARY ARTERIES: The pulmonary arteries and their major tributaries are patent. I do not see belinda dence for sizable filling defect to suggest pulmonary embolic process. LUNGS: The lungs are clear and free of infiltrate. Scattered linear atelectasis seen bilaterally. Mil d subpleural fibrosis. No pulmonary nodule or mass is detected. No pleural effusion. MEDIASTINUM: Thoracic aorta is of normal caliber. Calcified hilar lymph nodes. No evidence for media stinal mass. No mediastinal lymph nodes greater than 1cm. HEART: Size within normal limits. No significant coronary artery calcifications. HILAR STRUCTURES: No evidence for mass. No hilar lymph nodes greater than 1 cm. UPPER ABDOMEN: No significant abnormality is seen. Postoperative changes of the right shoulder. IMPRESSION: 1. No evidence for Pulmonary embolism at this time. [facility], , 10/25/2024 5:44 PM
[2024-10-25] MEDS ORDERED: DOXYCYCLINE 100 MG TABLET PO SCH (21:00)
[2024-10-26] MEDS ORDERED: ACETAMINOPHEN TAB 325 MG TAB PO PRN (07:18)
[2024-10-26] MEDS: ONDANSETRON 4 MG/2 ML VIAL IVP PRN (08:21)
[2024-10-26] MEDS: SENNOSIDES-DOCUSATE SODIUM 1 EACH TAB PO PRN (10:50)
[2024-10-26 11:03] LABS: Blood Urea Nitrogen 7.8 mg/dL (9.0-27.0); Calcium 8.4 mg/dL (8.7-10.3); Carbon Dioxide 28.7 mmol/L (21.6-31.8); Chloride 99 mmol/L (96-109); Glucose 118 mg/dL (70-110); Potassium 5.1 mmol/L (3.5-5.5); Sodium 135 mmol/L (135-145)
[2024-10-26 11:19] LABS: Basophils # (A) 0.05 X 10*3/uL (0.00-0.10); Basophils % (A) 0.3 %; Eosinophils # (A) 0.06 X 10*3/uL (0.04-0.35); Eosinophils % (A) 0.4 %; HCT 33.8 % (37.2-46.3); HGB 10.5 g/dL (12.0-15.0); Lymphocytes # (A) 0.76 X 10*3/uL (0.90-5.00); Lymphocytes % (A) 4.6 %; MCH 39.3 pg (27.0-32.0); MCHC 31.1 g/dL (32.0-37.0); MCV 126.6 FL (80.0-97.0); Mean Platelet Volume 12.6 FL (9.5-12.2); Monocytes # (A) 2.44 X 10*3/uL (0.20-1.00); Monocytes % (A) 14.6 %; NRBC Per 100 WBC 0 X 10*3/uL (0.00-0.01); Neutrophils # (A) 13.07 X 10*3/uL (1.80-7.70); Neutrophils % (A) 78.2 %; Platelet Count 272 X 10*3/uL (140-440); RBC 2.67 X 10*6/uL (4.10-5.20); RDW 11.8 % (11.5-14.5); WBC 16.69 X 10*3/uL (4.50-10.00)
--- NOTE | 2024-10-26 13:26 | P.PN ---
Subjective Progress Note Date: 10/26/24 Patient is admitted for right shoulder surgery postoperatively patient is in some pain but denied any other significant complaints of cough shortness of breath fever chills nausea vomiting abdominal pain dysuria. 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 Patient underwent surgery today. And her tack picker recommended to start her aspirin back in about a week and add hydroxyurea in about a week. 10/24/2024 Patient is seen in follow-up status post right total arthroplasty with orthopedics. Patient with significant weakness is planning on going to rehab for continued strength and mobility. Patient is afebrile sitting up in the chair with no reports of chest pain or shortness of breath. Patient does have sling although currently not using it as she is sitting up in the chair eating. Instructed patient to continue using sling is much as possible. Patient uses a walker normally and will be having difficulty managing ADLs and would recommend [facility] for continued PT/OT therapy. Patient does live alone. Patient reports she is tolerating diet with no reported nausea or vomiting. Encouraged incentive spirometer use and increase activity as tolerated 10/25/2024 Patient is evaluated today in follow up. Resting in bed comfortably and reports having minimal to no pain currently. Sling in place to the right shoulder. Patient was evaluated by PT and recommending home with homecare services. WBC 24.12 today. Recommending to resume the hydrea in one week. Resumed on eliquis. Patient continues to be hypoxic requiring oxygen via nasal cannula at 2 L. She is found to be 82% while on room air and dropping into the 70s at times. A chest x-ray was completed which was negative for any acute findings. Viral scan pending. D-dimer was elevated at 0.71. 10/26/2024 Patient is more awake and alert today. Reporting minimal right shoulder pain, and narcotics and sedating medications have been cut back. Started on oral doxycycline by orthopedics and WBC down to 16 today. She has not been able to be weaned off the nasal cannula and continues to drop into the 70-80s on room air. CTA did not reveal any pulmonary embolism however there is some atelectasis and possibly infiltrate noted on CT imaging. Continue to encourage IS and will add a pulmicort inhaler and monitor for improvemeint. Review of systems: Constitutional: No reports of fatigue, fever, or chills Cardiovascular: No reports of chest pain or palpitations Respiratory: No reports of shortness of breath or cough GI: No reports of nausea, vomiting, or diarrhea, reports passing gas and had a bowel movement : No reports of dysuria or retention Neurovascular: reports of generalized weakness All medications have been reviewed PHYSICAL EXAMINATION: GENERAL: The patient is alert and oriented x3, not in any acute distress. Well developed, elderly appearing HEENT: Pupils are round and equally reacting to light. EOMI. No scleral icterus. No conjunctival pallor. Normocephalic, atraumatic. No pharyngeal erythema. No thyromegaly. CARDIOVASCULAR: S1 and S2 present. No murmurs, rubs, or gallops. PULMONARY: Chest is clear to auscultation, no wheezing or crackles. ABDOMEN: Soft, nontender, nondistended, normoactive bowel sounds. No palpable organomegaly. MUSCULOSKELETAL: No joint swelling or deformity. EXTREMITIES: No cyanosis, clubbing, or pedal edema. Right shoulder sling noted although patient is not using currently as she is eating NEUROLOGICAL: Gross neurological examination did not reveal any focal deficits. Diffusely weak SKIN: No rashes. 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 Okay to resume in approximately 1 week -History of DVT in the past, resume Eliquis -history of paroxysmal atrial fibrillation presently sinus rhythm -Hyperlipidemia -History of Depression DVT prophylaxis: As per primary service, Eliquis being resumed GI prophylaxis Full code Plan: Patient is admitted under orthopedic services status post right total shoulder arthroplasty and has sling. Patient uses a walker and will be hard to perform ADLs and is planning on going to [facility]; although had worked with PT and the plan is now for home with home health care services. Discharge held for investigation of the hypoxia Continue oral doxycyline, add pulmicort and continue to encourage IS Check procalcitonin level and BNP IV lasix x 1 Case management following working on discharge planning Encourage incentive spirometer use at least 10 times every hour while awake Home medications reviewed and resumed as appropriate Patient's Hydrea is being held and okay to resume in about 1 week Resuming Macario Thank you kindly for this consultation. We will continue to follow with orthopedics during hospitalization The impression and plan of care has been dictated by Temitope Horner, Nurse Practitioner as directed. Dr. Karely MD I have performed a history and examination and MDM of this patient, discussed the same with the dictator, and agree with the dictator's assessment and plan as written ,documented as a scribe. Based on total visit time, I have performed more than 50% of the visit. Objective - Vital Signs Vital signs: Vital Signs Temp 98.1 F 10/26/24 06:40 Pulse 80 10/26/24 06:40 Resp 18 10/26/24 06:40 BP 121/70 10/26/24 06:40 Pulse Ox 94 L 10/26/24 10:49 FiO2 Intake & Output 10/25/24 10/26/24 10/26/24 18:59 06:59 18:59 Intake Total 250 Balance 250 Intake: Oral 250 Other: Voiding Method Toilet # Voids 3 - Labs CBC & Chem 7: 10/26/24 02:29 10/26/24 02:29 Labs: Abnormal Lab Results - Last 24 Hours (Table) 10/25/24 10/25/24 10/26/24 Range/Units 14:41 15:45 02:29 WBC 16.69 H (4.50-10.00) X 10*3/uL RBC 2.67 L (4.10-5.20) X 10*6/uL Hgb 10.5 L (12.0-15.0) g/dL Hct 33.8 L (37.2-46.3) % MCV 126.6 H (80.0-97.0) FL MCH 39.3 H (27.0-32.0) pg MCHC 31.1 L (32.0-37.0) g/dL MPV 12.6 H (9.5-12.2) FL Immature Gran # 0.31 H (0.00-0.04) X 10*3/uL Neutrophils # 13.07 H (1.80-7.70) X 10*3/uL Lymphocytes # 0.76 L (0.90-5.00) X 10*3/uL Monocytes # 2.44 H (0.20-1.00) X 10*3/uL D-Dimer 0.71 H (<0.60) mg/L FEU BUN (9.0-27.0) mg/dL Glucose (70-110) mg/dL Calcium (8.7-10.3) mg/dL Urine Protein Trace H (Negative) 10/26/24 Range/Units 02:29 WBC (4.50-10.00) X 10*3/uL RBC (4.10-5.20) X 10*6/uL Hgb (12.0-15.0) g/dL Hct (37.2-46.3) % MCV (80.0-97.0) FL MCH (27.0-32.0) pg MCHC (32.0-37.0) g/dL MPV (9.5-12.2) FL Immature Gran # (0.00-0.04) X 10*3/uL Neutrophils # (1.80-7.70) X 10*3/uL Lymphocytes # (0.90-5.00) X 10*3/uL Monocytes # (0.20-1.00) X 10*3/uL D-Dimer (<0.60) mg/L FEU BUN 7.8 L (9.0-27.0) mg/dL Glucose 118 H (70-110) mg/dL Calcium 8.4 L (8.7-10.3) mg/dL Urine Protein (Negative) Assessment and Plan Time with Patient: Less than 30
--- NOTE | 2024-10-26 13:44 | P.PN ---
Progress Note - Text Progress Note Date: 10/26/24 Orthopedics: History of present illness: Patient is a very pleasant 84-year-old female who presented with right shoulder advanced rotator cuff arthropathy who failed outpatient conservative therapy. He was admitted for a right reverse total shoulder arthroplasty. Her pain has been adequately controlled. She is not currently complaining of any significant pain at her right shoulder. Dressing is clean, dry, and intact. She is utilizing a sling. The patient tolerated the procedure well and did well postoperatively. Condition on day of discharge stable from an orthopedic standpoint. Patient will be discharged home. She was planning for discharge yesterday when cleared by medicine. Nursing states she became hypoxic on room air. She is now on oxygen. She has not been cleared for discharge. Consultation has now been placed for further evaluation with pulmonology. Her oxygen saturation continues to drop when not utilizing O2 nasal cannula Patient is no longer complaining of itching over her entire body as she was yesterday. When cleared, patient is planning to be discharged home with her daughter who is a nurse here at [facility]. Patient currently denies any nausea, vomiting, fever, or chills. Patient is eating and voiding freely without difficulty. Patient should keep dressing over the right shoulder clean, dry, and intact. Dressing may be removed in 3 days and patient may shower without a dressing at that time if there is no active bleeding from the surgical site. She should continue to maintain her sling for the right upper extremity. She is nonweightbearing with the right upper extremity. Medications of oxycodone 5 mg / 325 mg, Colace, doxycycline, and Zofran were sent to the patient's pharmacy. Patient's other medical diagnoses include hyperlipidemia, polycythemia, history of DVT, and history of paroxysmal atrial fibrillation. Physical Exam on day of discharge: Patient is awake, alert, and oriented 3 Vital signs stable Good chest excursion with deep inspiration and expiration Abdomen soft nontender No signs or symptoms of DVT; no calf pain Right upper extremity sling is intact Patient is able to perform active range of motion of her right wrist and fingers of the right hand without significant difficulty No significant pain with palpation around the surgical site of the right shoulder Incision is clean, dry, and intact; no erythema, purulence, or signs of infection Surgical dressing over the right shoulder is intact Assessment: Right shoulder pain Status post reverse right total shoulder arthroplasty Hypoxia, improved on O2 nasal cannula Hyperlipidemia Polycythemia History of DVT History paroxysmal atrial fibrillation Plan: 1. Patient will remain strict nonweightbearing with the right upper extremity 2. Keep sling intact over the right upper extremity 3. Keep dressing over the right shoulder clean, dry, and intact; dressing may be removed in 3 days and patient may shower without a dressing at that time if incision site remains dry 4. Continue with pain medication as prescribed as needed for pain control 5. Consultation currently pending with pulmonology given patient's hypoxia which has improved on O2 nasal cannula 6. Patient will continue to be seen exam by medicine for her other medical diagnoses 7. Patient will plan to follow-up with Dr. Alan Seals or Chapincito Marcos PA-C at [facility] following discharge.
[2024-10-26] MEDS ORDERED: polyethylene glycoL 3350 17 GM POWD.PACK PO PRN (14:13)
[2024-10-26] MEDS: FUROSEMIDE 10 MG/ML 2 ML VIAL IV ONE (14:14)
[2024-10-26] MEDS: HYDROcodone/APAP 5-325MG 1 EACH TAB PO PRN (16:52)
[2024-10-26] MEDS: BUDESONIDE 0.5 MG/2 ML NEBU INHALATION SCH (21:44)
[2024-10-27 08:31] LABS: BUN/Creat Ratio 14.17 Ratio (12.00-20.00); Blood Urea Nitrogen 8.5 mg/dL (9.0-27.0); Calcium 8.5 mg/dL (8.7-10.3); Carbon Dioxide 31.5 mmol/L (21.6-31.8); Chloride 98 mmol/L (96-109); Glucose 110 mg/dL (70-110); Magnesium 1.7 mg/dL (1.5-2.4); Potassium 4.6 mmol/L (3.5-5.5); Sodium 138 mmol/L (135-145)
[2024-10-27 08:56] LABS: Basophils # (A) 0.07 X 10*3/uL (0.00-0.10); Basophils % (A) 0.5 %; Eosinophils # (A) 0.08 X 10*3/uL (0.04-0.35); Eosinophils % (A) 0.6 %; HCT 33.8 % (37.2-46.3); HGB 10.5 g/dL (12.0-15.0); Lymphocytes % (A) 8.2 %; MCH 38.9 pg (27.0-32.0); MCHC 31.1 g/dL (32.0-37.0); MCV 125.2 FL (80.0-97.0); Mean Platelet Volume 12.9 FL (9.5-12.2); Monocytes # (A) 1.73 X 10*3/uL (0.20-1.00); Monocytes % (A) 12.9 %; NRBC Per 100 WBC 0 X 10*3/uL (0.00-0.01); Neutrophils # (A) 10.19 X 10*3/uL (1.80-7.70); Neutrophils % (A) 75.6 %; Platelet Count 266 X 10*3/uL (140-440); RDW 11.7 % (11.5-14.5); WBC 13.46 X 10*3/uL (4.50-10.00)
[2024-10-27] MEDS ORDERED: Magnesium Replacement Protocol 1 EACH MISC MISCELLANE PRN (09:49)
[2024-10-27] MEDS: MAGNESIUM SULFATE-D5W PMX 1 GM in DEXTROSE/WATER 1 100ML.BAG IVPB ONE (11:06)
--- NOTE | 2024-10-27 12:46 | P.PN ---
Subjective Progress Note Date: 10/27/24 Principal diagnosis: S/P right reverse TSA Patient is seen at bedside this morning. She is postop day #4 from reverse right total shoulder arthroplasty. She has pain at the surgical site as expected but denies any new complaints. She denies numbness, tingling or calf pain. Review of systems is negative for fever, chills, chest pain, shortness of breath or other Objective - Vital Signs Vital signs: Vital Signs Temp 98.3 F 10/27/24 08:28 Pulse 85 10/27/24 08:28 Resp 18 10/27/24 08:28 BP 103/62 10/27/24 08:28 Pulse Ox 90 L 10/27/24 12:11 FiO2 Intake & Output 10/26/24 10/27/24 10/27/24 18:59 06:59 18:59 Other: Voiding Method Toilet # Voids 5 4 # Bowel Movements 0 - Exam Inspection reveals a benign surgical wound. There is no active bleeding or drainage. Neurovascular status is intact throughout the upper extremity with motor and sensation fully intact. Calves are soft and nontender. 2+ radial pulse and less than 2 second cap refill is present. - Constitutional General appearance: Present: no acute distress - Labs CBC & Chem 7: 10/27/24 02:22 10/27/24 02:22 Labs: Abnormal Lab Results - Last 24 Hours (Table) 10/27/24 10/27/24 Range/Units 02:22 02:22 WBC 13.46 H (4.50-10.00) X 10*3/uL RBC 2.70 L (4.10-5.20) X 10*6/uL Hgb 10.5 L (12.0-15.0) g/dL Hct 33.8 L (37.2-46.3) % MCV 125.2 H (80.0-97.0) FL MCH 38.9 H (27.0-32.0) pg MCHC 31.1 L (32.0-37.0) g/dL MPV 12.9 H (9.5-12.2) FL Immature Gran # 0.29 H (0.00-0.04) X 10*3/uL Neutrophils # 10.19 H (1.80-7.70) X 10*3/uL Monocytes # 1.73 H (0.20-1.00) X 10*3/uL BUN 8.5 L (9.0-27.0) mg/dL Calcium 8.5 L (8.7-10.3) mg/dL Assessment and Plan (1) Status post total replacement of right shoulder Narrative/Plan: She will continue with routine postop orthopedic protocol including pain management, wound care, DVT prophylaxis and medical management. She is pending Rehab placement Expect that she will discharge in next 1-2 days Status: Acute Priority: Medium Code(s): Z96.611 - PRESENCE OF RIGHT ARTIFICIAL SHOULDER JOINT SNOMED Code(s): 019240385 Time with Patient: Less than 30
--- NOTE | 2024-10-27 20:47 | P.PN ---
Subjective Progress Note Date: 10/27/24 Patient is admitted for right shoulder surgery postoperatively patient is in some pain but denied any other significant complaints of cough shortness of breath fever chills nausea vomiting abdominal pain dysuria. Patient does have history of polycythemia vera I do not have any labs or CBC available at this time patient had history of DVT in the past secondary to polycythemia vera for which patient on Eliquis and her folding machine tender recommended to start this back again tomorrow. Patient underwent surgery today. And her folding machine tender recommended to start her aspirin back in about a week and add hydroxyurea in about a week. 10/24/2024 Patient is seen in follow-up status post right total arthroplasty with orthopedics. Patient with significant weakness is planning on going to rehab for continued strength and mobility. Patient is afebrile sitting up in the chair with no reports of chest pain or shortness of breath. Patient does have sling although currently not using it as she is sitting up in the chair eating. Instructed patient to continue using sling is much as possible. Patient uses a walker normally and will be having difficulty managing ADLs and would recommend [facility] for continued PT/OT therapy. Patient does live alone. Patient reports she is tolerating diet with no reported nausea or vomiting. Encouraged incentive spirometer use and increase activity as tolerated 10/25/2024 Patient is evaluated today in follow up. Resting in bed comfortably and reports having minimal to no pain currently. Sling in place to the right shoulder. Patient was evaluated by PT and recommending home with homecare services. WBC 24.12 today. Recommending to resume the hydrea in one week. Resumed on eliquis. Patient continues to be hypoxic requiring oxygen via nasal cannula at 2 L. She is found to be 82% while on room air and dropping into the 70s at times. A chest x-ray was completed which was negative for any acute findings. Viral scan pending. D-dimer was elevated at 0.71. 10/26/2024 Patient is more awake and alert today. Reporting minimal right shoulder pain, and narcotics and sedating medications have been cut back. Started on oral doxycycline by orthopedics and WBC down to 16 today. She has not been able to be weaned off the nasal cannula and continues to drop into the 70-80s on room air. CTA did not reveal any pulmonary embolism however there is some atelectasis and possibly infiltrate noted on CT imaging. Continue to encourage IS and will add a pulmicort inhaler and monitor for improvemeint. 10/27/2024 Patient is evaluated today in follow up. Has been weaned off oxygen and saturating 91% on room air with activity. WBC 13.46, hgb 10.5. Sodium 138, potassium 4.6, BUN 8.5, creatinine 0.6. Procal is normal. proBNP not elevated. Patient continues on oral doxycycline and budesonide. Review of systems: Constitutional: No reports of fatigue, fever, or chills Cardiovascular: No reports of chest pain or palpitations Respiratory: No reports of shortness of breath or cough GI: No reports of nausea, vomiting, or diarrhea, reports passing gas and had a bowel movement : No reports of dysuria or retention Neurovascular: reports of generalized weakness All medications have been reviewed PHYSICAL EXAMINATION: GENERAL: The patient is alert and oriented x3, not in any acute distress. Well developed, elderly appearing HEENT: Pupils are round and equally reacting to light. EOMI. No scleral icterus. No conjunctival pallor. Normocephalic, atraumatic. No pharyngeal erythema. No thyromegaly. CARDIOVASCULAR: S1 and S2 present. No murmurs, rubs, or gallops. PULMONARY: Chest is clear to auscultation, no wheezing or crackles. ABDOMEN: Soft, nontender, nondistended, normoactive bowel sounds. No palpable organomegaly. MUSCULOSKELETAL: No joint swelling or deformity. EXTREMITIES: No cyanosis, clubbing, or pedal edema. Right shoulder sling noted although patient is not using currently as she is eating NEUROLOGICAL: Gross neurological examination did not reveal any focal deficits. Diffusely weak SKIN: No rashes. 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 Okay to resume in approximately 1 week -History of DVT in the past, resume Eliquis -history of paroxysmal atrial fibrillation presently sinus rhythm -Hyperlipidemia -History of Depression DVT prophylaxis: As per primary service, Eliquis being resumed GI prophylaxis Full code Plan: Patient is admitted under orthopedic services status post right total shoulder arthroplasty and has sling. Patient uses a walker and will be hard to perform ADLs and is planning on going to [facility]; although had worked with PT and the plan is now for home with home health care services. Discharge held for investigation of the hypoxia Continue oral doxycyline, add pulmicort and continue to encourage IS Case management following working on discharge planning Encourage incentive spirometer use at least 10 times every hour while awake Home medications reviewed and resumed as appropriate Patient's Hydrea is being held and okay to resume in about 1 week Resuming Macario Thank you kindly for this consultation. We will continue to follow with orthopedics during hospitalization Patient is pending acceptance to [facility] The impression and plan of care has been dictated by Aga Angela, Nurse Practitioner as directed. Dr. Karely MD I have performed a history and examination and MDM of this patient, discussed th e same with the dictator, and agree with the dictator's assessment and plan as written ,documented as a scribe. Based on total visit time, I have performed more than 50% of the visit. Objective - Vital Signs Vital signs: Vital Signs Temp 98.4 F 10/27/24 19:53 Pulse 83 10/27/24 20:42 Resp 17 10/27/24 19:53 BP 132/70 10/27/24 19:53 Pulse Ox 90 L 10/27/24 19:53 FiO2 Intake & Output 10/27/24 10/27/24 10/28/24 06:59 18:59 06:59 Other: # Voids 4 5 - Labs CBC & Chem 7: 10/27/24 02:22 10/27/24 02:22 Labs: Abnormal Lab Results - Last 24 Hours (Table) 10/27/24 10/27/24 Range/Units 02:22 02:22 WBC 13.46 H (4.50-10.00) X 10*3/uL RBC 2.70 L (4.10-5.20) X 10*6/uL Hgb 10.5 L (12.0-15.0) g/dL Hct 33.8 L (37.2-46.3) % MCV 125.2 H (80.0-97.0) FL MCH 38.9 H (27.0-32.0) pg MCHC 31.1 L (32.0-37.0) g/dL MPV 12.9 H (9.5-12.2) FL Immature Gran # 0.29 H (0.00-0.04) X 10*3/uL Neutrophils # 10.19 H (1.80-7.70) X 10*3/uL Monocytes # 1.73 H (0.20-1.00) X 10*3/uL BUN 8.5 L (9.0-27.0) mg/dL Calcium 8.5 L (8.7-10.3) mg/dL Assessment and Plan Time with Patient: Less than 30
[2024-10-28] MEDS: DEXAMETHASONE SOD PHOSPHATE 4 MG/ML 1 ML VIAL ONE (09:23)
[2024-10-28] MEDS: GLYCOPYRROLATE 0.2 MG/ML 2 ML VIAL ONE (09:23)
[2024-10-28] MEDS: LIDOCAINE 1% INJ 10MG/ML (20 ML MDV) ONE (09:23)
[2024-10-28] MEDS: NEOSTIGMINE 1 MG/ML 10 ML VIAL ONE (09:25)
[2024-10-28] MEDS: PHENYLEPHRINE-0.9% NACL SYG 1,000 MCG/10 ML SYRINGE ONE (09:26)
[2024-10-28] MEDS: SUCCINYLCHOLINE CHLORIDE 200 MG/10 ML VIAL IV ONE (09:26)
[2024-10-28] MEDS: TRANEXAMIC 1,000 MG/100ML-NACL PREMIX BAG ONE (09:26)
[2024-10-28] MEDS: ROPIVACAINE 5 MG/ML 30 ML VIAL ONE (09:26)
[2024-10-28] MEDS: ROCURONIUM 10 MG/ML (5 ML VIAL) IV ONE (09:26)
[2024-10-28] MEDS: PROPOFOL 10 MG/ML 20 ML VIAL IV ONE (09:26)
[2024-10-28 11:15] LABS: Basophils % (A) 0.7 %; Eosinophils # (A) 0.11 10*3/uL (0.04-0.35); Eosinophils % (A) 0.8 %; HCT 34.8 % (37.2-46.3); HGB 10.9 g/dL (12.0-15.0); Lymphocytes # (A) 0.84 10*3/uL (0.90-5.00); Lymphocytes % (A) 5.7 %; MCH 38.4 pg (27.0-32.0); MCHC 31.3 g/dL (32.0-37.0); Mean Platelet Volume 12.1 fL (9.5-12.2); Neutrophils # (A) 11.17 10*3/uL (1.80-7.70); Neutrophils % (A) 76.4 %; Platelet Count 321 10*3/uL (140-440); RBC 2.84 10*6/uL (4.10-5.20); RDW 11.7 % (11.5-14.5); WBC 14.61 10*3/uL (4.50-10.00)
[2024-10-28 11:20] LABS: MCV 122.5 fL (80.0-97.0)
[2024-10-28 11:28] LABS: African American GFR (CKD) >90 (>60 ml/min/1.73 sqM); Anion Gap 2 mmol/L; Blood Urea Nitrogen 12 mg/dL (7-17); Calcium 9.1 mg/dL (8.4-10.2); Carbon Dioxide 40 mmol/L (22-30); Chloride 95 mmol/L (98-107); Glucose 122 mg/dL (74-99); Non-African American GFR(CKD) 82 (>60 ml/min/1.73 sqM); Potassium 4.3 mmol/L (3.5-5.1); Sodium 137 mmol/L (137-145)
[2024-10-28] MEDS: HYDROcodone/APAP 5-325MG 1 EACH TAB PO PRN (14:04)
--- NOTE | 2024-10-29 09:30 | P.PN ---
Subjective Progress Note Date: 10/28/24 Patient is admitted for right shoulder surgery postoperatively patient is in some pain but denied any other significant complaints of cough shortness of breath fever chills nausea vomiting abdominal pain dysuria. Patient does have history of polycythemia vera I do not have any labs or CBC available at this time patient had history of DVT in the past secondary to polycythemia vera for which patient on Eliquis and her agricultural researcher recommended to start this back again tomorrow. Patient underwent surgery today. And her agricultural researcher recommended to start her aspirin back in about a week and add hydroxyurea in about a week. 10/24/2024 Patient is seen in follow-up status post right total arthroplasty with orthopedics. Patient with significant weakness is planning on going to rehab for continued strength and mobility. Patient is afebrile sitting up in the chair with no reports of chest pain or shortness of breath. Patient does have sling although currently not using it as she is sitting up in the chair eating. Instructed patient to continue using sling is much as possible. Patient uses a walker normally and will be having difficulty managing ADLs and would recommend [facility] for continued PT/OT therapy. Patient does live alone. Patient reports she is tolerating diet with no reported nausea or vomiting. Encouraged incentive spirometer use and increase activity as tolerated 10/25/2024 Patient is evaluated today in follow up. Resting in bed comfortably and reports having minimal to no pain currently. Sling in place to the right shoulder. Patient was evaluated by PT and recommending home with homecare services. WBC 24.12 today. Recommending to resume the hydrea in one week. Resumed on eliquis. Patient continues to be hypoxic requiring oxygen via nasal cannula at 2 L. She is found to be 82% while on room air and dropping into the 70s at times. A chest x-ray was completed which was negative for any acute findings. Viral scan pending. D-dimer was elevated at 0.71. 10/26/2024 Patient is more awake and alert today. Reporting minimal right shoulder pain, and narcotics and sedating medications have been cut back. Started on oral doxycycline by orthopedics and WBC down to 16 today. She has not been able to be weaned off the nasal cannula and continues to drop into the 70-80s on room air. CTA did not reveal any pulmonary embolism however there is some atelectasis and possibly infiltrate noted on CT imaging. Continue to encourage IS and will add a pulmicort inhaler and monitor for improvemeint. 10/27/2024 Patient is evaluated today in follow up. Has been weaned off oxygen and saturating 91% on room air with activity. WBC 13.46, hgb 10.5. Sodium 138, potassium 4.6, BUN 8.5, creatinine 0.6. Procal is normal. proBNP not elevated. Patient continues on oral doxycycline and budesonide. 10/28/2024 Patient evaluated today sitting up in the chair. Doing well and awaiting authorization for discharge to [facility]. Review of systems: Constitutional: No reports of fatigue, fever, or chills Cardiovascular: No reports of chest pain or palpitations Respiratory: No reports of shortness of breath or cough GI: No reports of nausea, vomiting, or diarrhea, reports passing gas and had a bowel movement : No reports of dysuria or retention Neurovascular: reports of generalized weakness All medications have been reviewed PHYSICAL EXAMINATION: GENERAL: The patient is alert and oriented x3, not in any acute distress. Well developed, elderly appearing HEENT: Pupils are round and equally reacting to light. EOMI. No scleral icterus. No conjunctival pallor. Normocephalic, atraumatic. No pharyngeal erythema. No thyromegaly. CARDIOVASCULAR: S1 and S2 present. No murmurs, rubs, or gallops. PULMONARY: Chest is clear to auscultation, no wheezing or crackles. ABDOMEN: Soft, nontender, nondistended, normoactive bowel sounds. No palpable organomegaly. MUSCULOSKELETAL: No joint swelling or deformity. EXTREMITIES: No cyanosis, clubbing, or pedal edema. Right shoulder sling noted although patient is not using currently as she is eating NEUROLOGICAL: Gross neurological examination did not reveal any focal deficits. Diffusely weak SKIN: No rashes. 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 Okay to resume in approximately 1 week -History of DVT in the past, resume Eliquis -history of paroxysmal atrial fibrillation presently sinus rhythm -Hyperlipidemia -History of Depression DVT prophylaxis: As per primary service, Eliquis being resumed GI prophylaxis Full code Plan: Patient is admitted under orthopedic services status post right total shoulder arthroplasty and has sling. Patient uses a walker and will be hard to perform ADLs and is planning on going to [facility]; although had worked with PT and the plan is now for home with home health care services. Discharge held for investigation of the hypoxia Continue oral doxycyline, add pulmicort and continue to encourage IS Case management following working on discharge planning Encourage incentive spirometer use at least 10 times every hour while awake Home medications reviewed and resumed as appropriate Patient's Hydrea is being held and okay to resume in about 1 week Resuming Eliquis Thank you kindly for this consultation. We will continue to follow with orthopedics during hospitalization Patient is pending acceptance to [facility] The impression and plan of care has been dictated by Aga Angela, Nurse Pr actitioner as directed. Dr. Karely MD I have performed a history and examination and MDM of this patient, discussed the same with the dictator, and agree with the dictator's assessment and plan a s written ,documented as a scribe. Based on total visit time, I have performed more than 50% of the visit. Objective - Vital Signs Vital signs: Vital Signs Temp 97.8 F 10/29/24 01:10 Pulse 102 H 10/29/24 01:10 Resp 18 10/29/24 01:10 BP 139/77 10/29/24 01:10 Pulse Ox 96 10/29/24 01:10 FiO2 Intake & Output 10/28/24 10/29/24 10/29/24 18:59 06:59 18:59 Intake Total 100 Balance 100 Intake: Oral 100 Other: # Voids 4 3 - Labs CBC & Chem 7: 10/28/24 10:44 10/28/24 10:44 Labs: Abnormal Lab Results - Last 24 Hours (Table) 10/28/24 10/28/24 Range/Units 10:44 10:44 WBC 14.61 H (4.50-10.00) 10*3/uL RBC 2.84 L (4.10-5.20) 10*6/uL Hgb 10.9 L (12.0-15.0) g/dL Hct 34.8 L (37.2-46.3) % MCV 122.5 H (80.0-97.0) fL MCH 38.4 H (27.0-32.0) pg MCHC 31.3 L (32.0-37.0) g/dL Immature Gran # 0.49 H (0.00-0.04) 10*3/uL Neutrophils # 11.17 H (1.80-7.70) 10*3/uL Lymphocytes # 0.84 L (0.90-5.00) 10*3/uL Monocytes # 1.90 H (0.20-1.00) 10*3/uL Chloride 95 L (98-107) mmol/L Carbon Dioxide 40 H (22-30) mmol/L Glucose 122 H (74-99) mg/dL Assessment and Plan Time with Patient: Less than 30
[2024-10-29 11:59] LABS: Basophils # (A) 0.09 10*3/uL (0.00-0.10); Basophils % (A) 0.6 %; Eosinophils # (A) 0.14 10*3/uL (0.04-0.35); Eosinophils % (A) 0.9 %; HCT 35.7 % (37.2-46.3); HGB 11.4 g/dL (12.0-15.0); Immature Platelet Fraction 14.3 % (1.1-6.1); Lymphocytes # (A) 0.82 10*3/uL (0.90-5.00); Lymphocytes % (A) 5.6 %; MCH 38.9 pg (27.0-32.0); MCHC 31.9 g/dL (32.0-37.0); MCV 121.8 fL (80.0-97.0); Mean Platelet Volume 12.1 fL (9.5-12.2); Monocytes # (A) 1.52 10*3/uL (0.20-1.00); Monocytes % (A) 10.3 %; Neutrophils # (A) 11.48 10*3/uL (1.80-7.70); Neutrophils % (A) 77.9 %; Platelet Count 367 10*3/uL (140-440); RBC 2.93 10*6/uL (4.10-5.20); RDW 11.8 % (11.5-14.5); WBC 14.75 10*3/uL (4.50-10.00)
[2024-10-29 12:33] LABS: Macrocytosis PRESENT
--- NOTE | 2024-10-29 13:14 | P.PN ---
Subjective Progress Note Date: 10/29/24 Principal diagnosis: S/P right reverse TSA Patient is seen at bedside this morning. She is postop day #6 from reverse right total shoulder arthroplasty. She has pain at the surgical site as expected but denies any new complaints. She denies numbness, tingling or calf pain. Review of systems is negative for fever, chills, chest pain, shortness of breath or other Objective - Vital Signs Vital signs: Vital Signs Temp 98.1 F 10/29/24 07:21 Pulse 80 10/29/24 08:38 Resp 17 10/29/24 07:21 BP 148/74 10/29/24 07:21 Pulse Ox 97 10/29/24 08:31 FiO2 Intake & Output 10/28/24 10/29/24 10/29/24 18:59 06:59 18:59 Intake Total 100 Balance 100 Intake: Oral 100 Other: # Voids 4 3 1 - Exam Inspection reveals a benign surgical wound. There is no active bleeding or drainage. Neurovascular status is intact throughout the upper extremity with motor and sensation fully intact. Calves are soft and nontender. 2+ radial pulse and less than 2 second cap refill is present. - Constitutional General appearance: Present: no acute distress - Labs CBC & Chem 7: 10/29/24 11:08 10/28/24 10:44 Labs: Abnormal Lab Results - Last 24 Hours (Table) 10/29/24 Range/Units 11:08 WBC 14.75 H (4.50-10.00) 10*3/uL RBC 2.93 L (4.10-5.20) 10*6/uL Hgb 11.4 L (12.0-15.0) g/dL Hct 35.7 L (37.2-46.3) % MCV 121.8 H (80.0-97.0) fL MCH 38.9 H (27.0-32.0) pg MCHC 31.9 L (32.0-37.0) g/dL Immature Gran # 0.70 H (0.00-0.04) 10*3/uL Neutrophils # 11.48 H (1.80-7.70) 10*3/uL Lymphocytes # 0.82 L (0.90-5.00) 10*3/uL Monocytes # 1.52 H (0.20-1.00) 10*3/uL Immature Plt Fraction 14.3 H (1.1-6.1) % Assessment and Plan (1) Status post total replacement of right shoulder Narrative/Plan: She will continue with routine postop orthopedic protocol including pain management, wound care, DVT prophylaxis and medical management. She is nonlabored on room air. VSS. She is pending Rehab placement and can D/C when a pproved. Current Visit: No Status: Acute Priority: Medium Code(s): Z96.611 - PRESENCE OF RIGHT ARTIFICIAL SHOULDER JOINT SNOMED Code(s): 576136451 Time with Patient: Less than 30
--- NOTE | 2024-10-29 14:13 | CDI ---
Documentation Clarification Form Date: 10/29/2024 01:23:00 PM From: Mary Garcia RN, CCDS Phone: [phone] Admit Date: 10/23/2024 06:03:00 AM Patient Name: Jessie Kay Visit Number: [id number] Discharge Date: ATTENTION: The Clinical Documentation Specialists (CDI) and [facility] Coding Staff appreciate your assistance in clarifying documentation. Please respond to the clarification below the line at the bottom and electronically sign. The CDI & [facility] Coding staff will review the response and follow-up if needed. Please note: Queries are made part of the Legal Health Record. If you have any questions, please contact the author of this message via ITS. Doctor. Alan Seals Atelectasis post-surgical is documented in the ongoing progress note starting on 10/26/24 and the patient right shoulder total arthroplasty on 10/23/24. Additional clarification is requested regarding the relationship, if any, that exists between the diagnosis and the procedure. History/Risk Factors: Right shoulder pain, Rotator cuff arthropathy of right shoulder, Hyperlipidemia, Atrial fibrillation, Polycythemia Patients Admitting Diagnosis: Right shoulder advanced rotator cuff arthropathy. Post-Operative Diagnosis: Same Procedure performed: Right reverse total shoulder arthroplasty. Clinical Indicators: 84-year-old female with longstanding right shoulder pain present for elective repair. On 10/25 she was hypoxic requiring oxygen via nasal cannula at 2L. She was found to be 82% on room air and dropping into the 70s at times. Chest x-ray was negative for any acute findings. 10/25/24 CTA Negative for PE. Lungs clear of infiltrate. Scattered linear atelectasis seen bilaterally. Mild sub pleural fibrosis. 10/25 VS (07:12) 115/63 97 18 98.0 90% 2/L NC (14:00) 82% RA Respiratory: No reports of shortness of breath or cough. Chest is clear to auscultation, No wheezing or crackles. Treatment: Encourage incentive spirometer use4 at least 10 times every hour while awake Pulmicort .5 MG Inhalation BID What relationship, if any, exists between the diagnosis of atelectasis post- surgical and the procedure? [ X ] Atelectasis is not clinically significant and not a complication [ ] Atelectasis is clinically significant and not a complication [ ] Other please specify ____ [ ] Unable to determine (Template Last Revised: June 2024) MTDD
[2024-10-29 14:23] VITALS: BP 154/77; PULSE 99; RESP 18; TEMP 98.3
--- NOTE | 2024-10-29 14:47 | P.DS ---
Providers Date of admission: 10/23/24 06:03 Expected date of discharge: 10/29/24 Attending physician: Alan Seals Consults: 10/23/24 09:30 Consult Physician Routine Consulting Provider: Sybil Mcgrath Consult Reason/Comments: post op medical management Do you want consulting provider notified?: Yes Primary care physician: Stated None - Discharge Diagnosis(es) (1) Status post total replacement of right shoulder Patient was admitted to the OR on 10/23/24 to undergo a right total shoulder arthroplasty. She had failed conservative measures as an outpatient and desired to proceed with elective surgery after given informed consent. She underwent the above procedure which he tolerated well without complication. Postoperative hospital course has remained without complication. On day of discharge she is afebrile, vital signs stable, labs within acceptable ranges, tolerating by mouth meds and diet, voiding without difficulty, positive flatus, denies abdominal pain or calf pain, pain is controlled on oral pain medication and has no new complaints. Wound is benign, neurovascular status is intact, calves are soft and nontender, abdomen soft and nontender. Review of systems is negative for numbness, tingling, fever, chills, chest pain, shortness of breath, nausea, vomiting, dizziness, headaches, slurred speech or other. Current Visit: No Status: Acute Priority: Medium Procedures: Reverse right TSA Patient Condition at Discharge: Good Plan - Discharge Summary Discharge Rx Participant: Yes New Discharge Prescriptions: New Doxycycline Hyclate 100 mg PO BID #10 tab Docusate [Colace] 100 mg PO BID #60 capsule Ondansetron [Zofran] 4 mg PO Q8HR PRN #21 tab PRN Reason: Nausea HYDROcodone/APAP 5-325MG [Spring 5-325] 1 - 2 tab PO Q4HR PRN #42 tab PRN Reason: Pain Continue Dicyclomine [Bentyl] 10 mg PO QID PRN PRN Reason: stomach pain Gabapentin [Neurontin] 100 mg PO QAM DULoxetine HCL [Cymbalta] 20 mg PO DAILY Diphenox-Atrop 2.5-0.025 mg [Lomotil] 1 - 2 tab PO QID PRN PRN Reason: Diarrhea Acetaminophen Tab [Tylenol] 650 mg PO Q6H Multivit-Min/Iron/Folic/Lutein [Centrum Silver Women Tablet] 1 each PO DAILY Memantine [Namenda] 10 mg PO BID Hydroxyurea 500 mg PO BID Gabapentin [Neurontin] 300 mg PO HS Apixaban [Eliquis] 5 mg PO BID Pantoprazole [Protonix] 40 mg PO DAILY Folic Acid 1 mg PO DAILY Ferrous Gluconate 324 mg PO DAILY Ergocalciferol [Vitamin D2 (1250 Mcg = 72019 Iu)] 1,250 mcg PO WEEKLY Atorvastatin [Lipitor] 40 mg PO HS Aspirin [[place] Aspirin EC] 81 mg PO DAILY Cholecalciferol [Vitamin D3 (10 Mcg = 400 Iu)] 10 mcg PO DAILY Discharge Medication List Acetaminophen Tab [Tylenol] 650 mg PO Q6H 10/20/24 [History] Apixaban [Eliquis] 5 mg PO BID 10/20/24 [History] Aspirin [[place] Aspirin EC] 81 mg PO DAILY 10/20/24 [History] Atorvastatin [Lipitor] 40 mg PO HS 10/20/24 [History] Cholecalciferol [Vitamin D3 (10 Mcg = 400 Iu)] 10 mcg PO DAILY 10/20/24 [History] DULoxetine HCL [Cymbalta] 20 mg PO DAILY 10/20/24 [History] Dicyclomine [Bentyl] 10 mg PO QID PRN 10/20/24 [History] Diphenox-Atrop 2.5-0.025 mg [Lomotil] 1 - 2 tab PO QID PRN 10/20/24 [History] Ergocalciferol [Vitamin D2 (1250 Mcg = 38980 Iu)] 1,250 mcg PO WEEKLY 10/20/24 [History] Ferrous Gluconate 324 mg PO DAILY 10/20/24 [History] Folic Acid 1 mg PO DAILY 10/20/24 [History] Gabapentin [Neurontin] 100 mg PO QAM 10/20/24 [History] Gabapentin [Neurontin] 300 mg PO HS 10/20/24 [History] Hydroxyurea 500 mg PO BID 10/20/24 [History] Memantine [Namenda] 10 mg PO BID 10/20/24 [History] Multivit-Min/Iron/Folic/Lutein [Centrum Silver Women Tablet] 1 each PO DAILY 10/20/24 [History] Pantoprazole [Protonix] 40 mg PO DAILY 10/20/24 [History] Docusate [Colace] 100 mg PO BID #60 capsule 10/24/24 [Rx] Doxycycline Hyclate 100 mg PO BID #10 tab 10/24/24 [Rx] Ondansetron [Zofran] 4 mg PO Q8HR PRN #21 tab 10/24/24 [Rx] HYDROcodone/APAP 5-325MG [Spring 5-325] 1 - 2 tab PO Q4HR PRN #42 tab 10/29/24 [Rx] Follow up Appointment(s)/Referral(s): Alan Saels MD [STAFF PHYSICIAN] - 10 Days (Office is closed at time of discharge. Please call for follow-up appointment.) Ambulatory/Diagnostic Orders: Complete Blood Count w/diff [LAB.AMB] Time Frame: 3 Days, Location: None Selected Activity/Diet/Wound Care/Special Instructions: Non Weight Bearing Maintain sling May shower after 3 days if no bleeding Keep wound clean and dry Take meds as directed F/U with Dr. Seals in office Hold hydrea for one week and OK to resume
--- NOTE | 2024-10-29 15:04 | P.PN ---
Subjective Progress Note Date: 10/29/24 Patient is admitted for right shoulder surgery postoperatively patient is in some pain but denied any other significant complaints of cough shortness of breath fever chills nausea vomiting abdominal pain dysuria. Patient does have history of polycythemia vera I do not have any labs or CBC available at this time patient had history of DVT in the past secondary to polycythemia vera for which patient on Eliquis and her flame cutter recommended to start this back again tomorrow. Patient underwent surgery today. And her flame cutter recommended to start her aspirin back in about a week and add hydroxyurea in about a week. 10/24/2024 Patient is seen in follow-up status post right total arthroplasty with orthopedics. Patient with significant weakness is planning on going to rehab for continued strength and mobility. Patient is afebrile sitting up in the chair with no reports of chest pain or shortness of breath. Patient does have sling although currently not using it as she is sitting up in the chair eating. Instructed patient to continue using sling is much as possible. Patient uses a walker normally and will be having difficulty managing ADLs and would recommend [facility] for continued PT/OT therapy. Patient does live alone. Patient reports she is tolerating diet with no reported nausea or vomiting. Encouraged incentive spirometer use and increase activity as tolerated 10/25/2024 Patient is evaluated today in follow up. Resting in bed comfortably and reports having minimal to no pain currently. Sling in place to the right shoulder. Patient was evaluated by PT and recommending home with homecare services. WBC 24.12 today. Recommending to resume the hydrea in one week. Resumed on eliquis. Patient continues to be hypoxic requiring oxygen via nasal cannula at 2 L. She is found to be 82% while on room air and dropping into the 70s at times. A chest x-ray was completed which was negative for any acute findings. Viral scan pending. D-dimer was elevated at 0.71. 10/26/2024 Patient is more awake and alert today. Reporting minimal right shoulder pain, and narcotics and sedating medications have been cut back. Started on oral doxycycline by orthopedics and WBC down to 16 today. She has not been able to be weaned off the nasal cannula and continues to drop into the 70-80s on room air. CTA did not reveal any pulmonary embolism however there is some atelectasis and possibly infiltrate noted on CT imaging. Continue to encourage IS and will add a pulmicort inhaler and monitor for improvemeint. 10/27/2024 Patient is evaluated today in follow up. Has been weaned off oxygen and saturating 91% on room air with activity. WBC 13.46, hgb 10.5. Sodium 138, potassium 4.6, BUN 8.5, creatinine 0.6. Procal is normal. proBNP not elevated. Patient continues on oral doxycycline and budesonide. 10/28/2024 Patient evaluated today sitting up in the chair. Doing well and awaiting authorization for discharge to [facility]. 10/29/2024 Patient evaluated today on the medical floor. Insurance authorization has been obtained for DC to [facility] today. Patient not been having any complaints of chest pain or shortness of breath no nausea vomiting or diarrhea. She is having normal bowel movements and urinating without difficulty. She has been tolerating diet. She reports her pain is controlled. Labs today reveal a blood cell count of 14.75, hemoglobin 11.4. Sodium levels 137 potassium 4.3 BUN of 12 creatinine 0.65. Patient has been afebrile, heart rate 99, blood pressure 154/77, 92% on room air. Has been intermittently on 2L of oxygen via nasal cannula. Received lasix and budesonide as well as oral doxycycline. Clinically doing well and stable medically for DC to rehab. Review of systems: Constitutional: No reports of fatigue, fever, or chills Cardiovascular: No reports of chest pain or palpitations Respiratory: No reports of shortness of breath or cough GI: No reports of nausea, vomiting, or diarrhea, reports passing gas and had a bowel movement : No reports of dysuria or retention Neurovascular: reports of generalized weakness All medications have been reviewed PHYSICAL EXAMINATION: GENERAL: The patient is alert and oriented x3, not in any acute distress. Well developed, elderly appearing HEENT: Pupils are round and equally reacting to light. EOMI. No scleral icterus. No conjunctival pallor. Normocephalic, atraumatic. No pharyngeal erythema. No thyromegaly. CARDIOVASCULAR: S1 and S2 present. No murmurs, rubs, or gallops. PULMONARY: Chest is clear to auscultation, no wheezing or crackles. ABDOMEN: Soft, nontender, nondistended, normoactive bowel sounds. No palpable organomegaly. MUSCULOSKELETAL: No joint swelling or deformity. EXTREMITIES: No cyanosis, clubbing, or pedal edema. Right shoulder sling noted although patient is not using currently as she is eating NEUROLOGICAL: Gross neurological examination did not reveal any focal deficits. Diffusely weak SKIN: No rashes. 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 Okay to resume in approximately 1 week -History of DVT in the past, resume Eliquis -history of paroxysmal atrial fibrillation presently sinus rhythm -Hyperlipidemia -History of Depression DVT prophylaxis: As per primary service, Eliquis being resumed GI prophylaxis Full code Plan: Patient is admitted under orthopedic services status post right total shoulder arthroplasty and has sling. Patient uses a walker and will be hard to perform ADLs and is planning on going to [facility]; although had worked with PT and the plan is now for home with home health care services. Discharge held for investigation of the hypoxia Continue oral doxycyline, add pulmicort and continue to encourage IS Case management following working on discharge planning Encourage incentive spirometer use at least 10 times every hour while awake Home medications reviewed and resumed as appropriate Patient's Hydrea is being held and okay to resume on Sunday Resuming Eliquis Thank you kindly for this consultation. We will continue to follow with orthopedics during hospitalization Patient has been accepted to [facility] and will discharged today. The impression and plan of care has been dictated by Aga Angela, Nurse Practitioner as directed. Dr. Karely MD I have performed a history and examination and MDM of this patient, discussed the same with the dictator, and agree with the dictator's assessment and plan as written ,documented as a scribe. Based on total visit time, I have performed more than 50% of the visit. Objective - Vital Signs Vital signs: Vital Signs Temp 98.1 F 10/29/24 07:21 Pulse 80 10/29/24 08:38 Resp 17 10/29/24 07:21 BP 148/74 10/29/24 07:21 Pulse Ox 97 10/29/24 08:31 FiO2 Intake & Output 10/28/24 10/29/24 10/29/24 18:59 06:59 18:59 Intake Total 100 Balance 100 Intake: Oral 100 Other: # Voids 4 3 - Labs CBC & Chem 7: 10/29/24 11:08 10/28/24 10:44 Labs: Abnormal Lab Results - Last 24 Hours (Table) 10/28/24 10/28/24 Range/Units 10:44 10:44 WBC 14.61 H (4.50-10.00) 10*3/uL RBC 2.84 L (4.10-5.20) 10*6/uL Hgb 10.9 L (12.0-15.0) g/dL Hct 34.8 L (37.2-46.3) % MCV 122.5 H (80.0-97.0) fL MCH 38.4 H (27.0-32.0) pg MCHC 31.3 L (32.0-37.0) g/dL Immature Gran # 0.49 H (0.00-0.04) 10*3/uL Neutrophils # 11.17 H (1.80-7.70) 10*3/uL Lymphocytes # 0.84 L (0.90-5.00) 10*3/uL Monocytes # 1.90 H (0.20-1.00) 10*3/uL Chloride 95 L (98-107) mmol/L Carbon Dioxide 40 H (22-30) mmol/L Glucose 122 H (74-99) mg/dL Assessment and Plan Time with Patient: Less than 30
--- NOTE | 2024-10-29 15:17 | CDI ---
Documentation Clarification Form Date: 10/29/2024 02:54:00 PM From: Mary Garcia RN, CCDS Phone: [phone] Admit Date: 10/23/2024 06:03:00 AM Patient Name: Jessie Kay Visit Number: [id number] Discharge Date: ATTENTION: The Clinical Documentation Specialists (CDI) and [facility] Coding Staff appreciate your assistance in clarifying documentation. Please respond to the clarification below the line at the bottom and electronically sign. The CDI & [facility] Coding staff will review the response and follow-up if needed. Please note: Queries are made part of the Legal Health Record. If you have any questions, please contact the author of this message via ITS. Provider Aga LARSEN Acute hypoxic Respiratory Failure is documented in the progress notes which may lack sufficient clinical evidence/support in the medical record. Additional clarification is requested. Patient history/risk factors: Right shoulder pain, Rotator cuff arthropathy of right shoulder, Hyperlipidemia, Atrial fibrillation, Polycythemia Clinical Indicators: Clinical Indicators: 84-year-old female with longstanding right shoulder pain present for elective repair. On 10/25 she was hypoxic requiring oxygen via nasal cannula at 2L. She was found to be 82% on room air and dropping into the 70s at times. Chest x-ray was negative for any acute findings. 10/25/24 CTA Negative for PE. Lungs clear of infiltrate. Scattered linear atelectasis seen bilaterally. Mild sub pleural fibrosis. 10/25 VS (07:12) 115/63 97 18 98.0 90% 2/L NC (14:00) 82% RA Respiratory: No reports of shortness of breath or cough. Chest is clear to auscultation, No wheezing or crackles. Treatment: Encourage incentive spirometer use4 at least 10 times every hour while awake Pulmicort .5 MG Inhalation BID After work up and study, please clarify which diagnosis is most appropriate? [ ] Acute Hypoxic Respiratory Failure ruled out [ x ] Acute Hypoxic Respiratory Failure is a valid diagnosis as evidenced by the following: (specify) Improvement in oxygen saturations after IV lasix -- Due volume overload. [ ] Respiratory Insufficiency [ ] Unable to determine [ ] Other, please specify (Template Last Revised: June 2023) MTDD
== END 2024-10-29 16:44 | DRG 483 ==
LOC: OR 06:02 → 4SSUR 06:03
PROVIDERS: ADMIT Orthopaedic Surgery Sports Medicine; ATTEND Orthopaedic Surgery Sports Medicine
PROC: 0RRJ00Z Replacement of Right Shoulder Joint with Reverse Ball and Socket Synthetic Substitute, Open Approach (ICD-10-PCS; principal; 2024-10-23 07:30)
DX: M19.011 Primary osteoarthritis, right shoulder (principal); J96.01 Acute respiratory failure with hypoxia; D45 Polycythemia vera; I48.0 Paroxysmal atrial fibrillation; E78.5 Hyperlipidemia, unspecified; G31.9 Degenerative disease of nervous system, unspecified; F10.20 Alcohol dependence, uncomplicated; F32.A Depression, unspecified; I77.819 Aortic ectasia, unspecified site; I10 Essential (primary) hypertension; Z89.431 Acquired absence of right foot; K21.9 Gastro-esophageal reflux disease without esophagitis; M75.101 Unspecified rotator cuff tear or rupture of right shoulder, not specified as traumatic; H91.93 Unspecified hearing loss, bilateral; Z75.1 Person awaiting admission to adequate facility elsewhere; Z79.01 Long term (current) use of anticoagulants; Z79.82 Long term (current) use of aspirin; Z79.899 Other long term (current) drug therapy; Z85.3 Personal history of malignant neoplasm of breast; Z86.718 Personal history of other venous thrombosis and embolism; Z90.11 Acquired absence of right breast and nipple; Z96.641 Presence of right artificial hip joint; Z96.653 Presence of artificial knee joint, bilateral; Z97.4 Presence of external hearing-aid; Z91.81 History of falling; Z88.1 Allergy status to other antibiotic agents
CPT/HCPCS: 64415; 80048; 83735; 85025; 94640; 94760